=== PATIENT | male | born 1935 | race Caucasian/White ===

== ENCOUNTER → 2016-09-21 | Outpatient (CLI) | payer MEDICARE, OTHER ==
--- NOTE | 2016-09-22 10:56 | XR ---
Right shoulder HISTORY: Pain, trauma 3 views of the right shoulder Bone mineralization, joint spaces and alignment are maintained. Right lung apex as visualized is norm al. IMPRESSION: No fracture or dislocation is evident. Shoulder MRI may be of benefit.
== END | disposition home or self-care (01) ==
LOC: RADXRYALE 16:52
PROVIDERS: ATTEND Family Medicine
DX: M25.511 Pain in right shoulder (principal)

== ENCOUNTER → 2016-10-18 | Outpatient (CLI) | payer MEDICARE, OTHER ==
--- NOTE | 2016-10-18 14:02 | MR ---
EXAMINATION TYPE: MR shoulder RT wo con DATE OF EXAM: 10/18/2016 1:20 PM COMPARISON: Radiographs 09/21/2016 HISTORY: 80-year-old male with right shoulder pain TECHNIQUE: Multiplanar, multisequence imaging of the right shoulder is performed without contrast. FINDINGS: The intracapsular portion of the long head biceps tendon is diminutive and likely partially torn. The re is moderate tenosynovial fluid seen along the extracapsular portion and there is also slight media l subluxation of the tendon along the upper bicipital groove. There is complete retracted tear of the subscapularis tendon with stump retracted medially 2.6 cm. There is moderate degenerative joint space narrowing with marginal spurring and capsular hypertrophy at the acromioclavicular joint. Changes contact the underlying myotendinous junction of the supraspin atus. An underlying AC joint effusion is likely reactive or may be communicating with bursal fluid. There is a full-thickness tear of the supraspinatus tendon. Essentially entire supraspinatus tendon a ppears involved with stump retracted by 3.4 cm to the level of a prominent rotator cable. Intermediate signal within the infraspinatus tendon. Most of the infraspinatus tendon appears intact. Mild fatty streaks are seen within the subscapularis, supraspinatus, and infraspinatus muscle bellies without any significant fatty atrophy. Evaluation of the glenohumeral joint shows a blunted and degenerative appearance to the glenoid labru m but without discrete labral tear or paralabral cyst. There is a moderate glenohumeral joint effusion. Mild diffuse thinning of humeral head articular cart ilage. No Hill-Sachs deformity or os acromiale. No suspicious bone marrow replacement. IMPRESSION: 1. Full-thickness tear of essentially the entire supraspinatus tendon with stump retracted by 3.4 cm to the level of a prominent rotator cable. 2. Additional complete tear of the subscapularis tendon with stump retracted by 2.6 cm. 3. Minimal fatty streaks within the rotator cuff muscle bellies without any significant fatty atrophy . 4. Partial tear intracapsular long head biceps tendon. Moderate biceps tenosynovitis. 5. Moderate glenohumeral joint effusion with mild diffuse thinning of humeral head articular cartilag e. 6. 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 AC joint effusion may be communicating with underlying b ursal fluid which in turn communicates with the glenohumeral joint space. Hypertrophic changes mildly impinge onto the underlying cuff.
== END ==
LOC: RADMRIMAIN 12:40
PROVIDERS: ATTEND Family Medicine
DX: M75.121 Complete rotator cuff tear or rupture of right shoulder, not specified as traumatic (principal); S46.011A Strain of muscle(s) and tendon(s) of the rotator cuff of right shoulder, initial encounter; M62.511 Muscle wasting and atrophy, not elsewhere classified, right shoulder; S46.111A Strain of muscle, fascia and tendon of long head of biceps, right arm, initial encounter; M75.21 Bicipital tendinitis, right shoulder; M25.411 Effusion, right shoulder; M19.011 Primary osteoarthritis, right shoulder

== ENCOUNTER → 2017-06-13 | Outpatient (CLI) | payer MEDICARE, OTHER ==
[2017-06-13 12:19] LABS: Anion Gap 7 mmol/L; Blood Urea Nitrogen 19 mg/dL (9-20); Carbon Dioxide 28 mmol/L (22-30); Chloride 109 mmol/L (98-107); Magnesium 1.8 mg/dL (1.6-2.3); Non-African American GFR(MDRD) 50 (>60 ml/min/1.73 sqM); Potassium 4.6 mmol/L (3.5-5.1); Sodium 144 mmol/L (137-145)
== END | disposition home or self-care (01) ==
LOC: LABWHC1 11:21
PROVIDERS: ATTEND Internal Medicine Cardiovascular Disease
DX: I49.3 Ventricular premature depolarization (principal)
CPT/HCPCS: 36415; 80051; 82565; 83735; 84520

== ENCOUNTER → 2018-04-09 | Outpatient (CLI) | payer MEDICARE, OTHER ==
--- NOTE | 2018-04-09 17:44 | CT ---
EXAMINATION TYPE: CT sinus wo con DATE OF EXAM: 04/09/2018 COMPARISON: None HISTORY: Facial pressure and pain CT DLP: 591 mGycm. Automated Exposure Control for Dose Reduction was Utilized. TECHNIQUE: CT scan of the sinuses is performed without contrast, axial images are obtained, coronal r eformatted images are also reviewed. FINDINGS: Orbital margins are intact. There is no evidence of orbital mass. There is fairly normal ae ration of the paranasal sinuses. I see no bony destructive process. There is bilateral patency of the ostiomeatal complex. Maxilla is intact. Nasal bone is intact. Maxilla is intact. IMPRESSION: Negative CT scan of the paranasal sinuses.
== END | disposition home or self-care (01) ==
LOC: RADCTMAIN 16:11
PROVIDERS: ATTEND Family Medicine
DX: J32.4 Chronic pansinusitis (principal)
CPT/HCPCS: 70486

== ENCOUNTER 2018-05-30 11:37 | Day surgery (SDC) | payer MEDICARE, OTHER ==
[2018-05-24 12:37] VITALS: BMI 24.3
[~2018-05-30 11:37] MED LIST: DEXAMETHASONE SOD PHOSPHATE 4 MG/ML 1 ML VIAL IV ONE; FAMOTIDINE 20 MG/2 ML VIAL IV ONE; ONDANSETRON 4 MG/2 ML VIAL IVP ONE
[2018-05-30] MEDS: OXYMETAZOLINE 0.05% NASL SPRAY 1 SPRAY BOTTLE NASAL ONE ×5 (12:20→12:51)
[2018-05-30] MEDS ORDERED: LIDOCAINE 1% 20 ML VIAL (10MG/ML) FOR IV START INTRADERMA ONE (12:29)
[2018-05-30] MEDS ORDERED: LACTATED RINGERS 1,000 ML IV ONE (12:29)
[2018-05-30] MEDS ORDERED: LIDOCAINE 1%-EPI 1:100,000 30 ML VIAL SUBMUCOSAL ONE ×3 (14:36→15:00)
[2018-05-30] MEDS: ceFAZolin 1,000 MG in DEXTROSE/WATER 1 50ML.BAG IV ONE ×3 (14:37→14:43)
[2018-05-30] MEDS ORDERED: fentaNYL (PF) 50 MCG/ML 2 ML AMP ONE (14:38)
[2018-05-30] MEDS ORDERED: ePHEDrine SULFATE/0.9% NACL/PF 50 MG/5 ML SYRINGE IV ONE (14:38)
[2018-05-30] MEDS ORDERED: LIDOCAINE 1% INJ 10MG/ML (20 ML MDV) ONE (14:38)
[2018-05-30] MEDS ORDERED: DEXAMETHASONE SOD PHOS (MDV) 100 MG/10 ML VIAL ONE (14:38)
[2018-05-30] MEDS ORDERED: SUCCINYLCHOLINE CHLORIDE VIAL 200 MG/10 ML VIAL IV ONE (14:38)
[2018-05-30] MEDS ORDERED: MIDAZOLAM 2 MG/2 ML VIAL ONE (14:38)
[2018-05-30] MEDS ORDERED: PROPOFOL 10 MG/ML 20 ML VIAL IV ONE (14:38)
--- NOTE | 2018-05-30 15:43 | P.OP ---
Date of Procedure: 05/30/18 Preoperative Diagnosis: Deviated nasal septum Inferior turbinate hypertrophy Nasal polyps Postoperative Diagnosis: Same Procedure(s) Performed: Septoplasty Outfracture and submucous resection of the inferior turbinates Bilateral endoscopic sinus surgery with polypectomy Anesthesia: ANDRE Surgeon: Gume Brizuela Estimated Blood Loss (ml): 5 Pathology: other (Nasal septal bone and cartilage and sinus contents) Condition: stable Disposition: PACU Indications for Procedure: This is an 82-year-old white male whose had difficulties with chronic nasal airway obstruction and congestion bilaterally Operative Findings: Nasal septum deviated to the left anteriorly to the right posteriorly the inferior turbinates are hypertrophied bilaterally. There are polyps in the middle meatus bilaterally arising from the uncinate process bilaterally Description of Procedure: The patient was brought in the operative suite and placed in a supine position. Patient underwent induction of general anesthesia with oral endotracheal intubation without difficulty. The patient prepped and draped in usual aseptic fashion with the orbits in the operating field for monitoring to at the case. The computed tomography scan at the case also. 1% lidocaine with 1 100,000 epinephrine was infused submucosally both sides nasal septum. While this taking vasoconstrictive effect the inferior elevator partial submucous resection of the inferior turbinates was performed with Coblation wand on the coagulation setting to ablate a portion of the submucosal soft tissue. These were then outfractured with the [place] elevator. A left hemitransfixion incision was made with the mucoperichondrial and mucoperiosteal flap on the left elevated. Bony cartilaginous junction was disarticulated and the mucoperiosteal flap on the right was elevated. Bony nasal septal deformities were removed Suni forceps. An inferior cartilaginous strip was removed leaving a full 1.5 cm caudal strut. Checking intranasally this corrected the nasoseptal deformities and the hemitransfixion incision was closed with a running 4-0 chromic suture. Full 0 the endoscopic examination was performed bilaterally. Beginning on the left the middle turbinate was medialized. The polyps were then debrided with microdebrider off of the uncinate process. The maxillary ostium was patent. Attention was then turned to the right where the procedure was followed as it had the left with polypectomy with polyps removed with the microdebrider off of the uncinate process. Again the middle meatus was patent.xerogel was placed in the middle meatus bilaterally. Be airway splint coated bacitracin ointment were placed in nasal cavities and sutured trans-septally with a 4-0 Vicryl suture. The patient was suctioned in oral gastric fashion. Patient allowed to emerge from general anesthesia and tolerated well was extubated in the operative suite and transferred postop recovery area in satisfactory condition.
[2018-05-30 16:04] VITALS: RESP 16; TEMP 97.5
[2018-05-30 17:04] VITALS: BP 157/81; PULSE 54
== END 2018-05-30 17:16 | disposition home or self-care (01) ==
LOC: OR 11:37
PROVIDERS: ATTEND Otolaryngology
DX: J34.2 Deviated nasal septum (principal); J34.3 Hypertrophy of nasal turbinates; J33.9 Nasal polyp, unspecified; K21.9 Gastro-esophageal reflux disease without esophagitis; I10 Essential (primary) hypertension; H40.9 Unspecified glaucoma; Z79.899 Other long term (current) drug therapy; Z91.09 Other allergy status, other than to drugs and biological substances; Z82.49 Family history of ischemic heart disease and other diseases of the circulatory system
CPT/HCPCS: 88305; 88300; 30140; 30520; 31237; J2250; J0330; J1100 ×2; J2405; J2001; J3010; J0690; J2704

== ENCOUNTER 2018-12-05 09:53 | Day surgery (SDC) | payer MEDICARE, OTHER ==
[2018-12-03 11:27] VITALS: BMI 25.1
[~2018-12-05 09:53] MED LIST changes: -DEXAMETHASONE SOD PHOSPHATE 4 MG/ML 1 ML VIAL IV ONE; -FAMOTIDINE 20 MG/2 ML VIAL IV ONE; +LACTATED RINGERS 1,000 ML IV SCH; +LIDOCAINE 1% 20 ML VIAL (10MG/ML) FOR IV START INTRADERMA PRN; -ONDANSETRON 4 MG/2 ML VIAL IVP ONE
[2018-12-05 11:02] VITALS: RESP 16; TEMP 97.6
[2018-12-05] MEDS ORDERED: LIDOCAINE 1% INJ 10MG/ML (20 ML MDV) ONE (11:36)
[2018-12-05] MEDS ORDERED: GLYCOPYRROLATE 0.2 MG/ML 2 ML VIAL ONE (11:36)
[2018-12-05] MEDS ORDERED: PROPOFOL 10 MG/ML 20 ML VIAL IV ONE (11:36)
--- NOTE | 2018-12-05 11:49 | P.PCN ---
Date of Procedure: 12/05/18 Procedure(s) Performed: BRIEF HISTORY: Patient is a 83-year-old, pleasant, I male, scheduled for an upper endoscopy as a part of evaluation of GERD/dysphagia. Lately has been having worsening solid food dysphagia. He had upper endoscopy with dilation in July 2016. PROCEDURE PERFORMED: Esophagogastroduodenoscopy with dilation. PREOPERATIVE DIAGNOSIS: Progressive dysphagia to solids. IV sedation per anesthesia. PROCEDURE: After informed consent was obtained, the patient was brought into the endoscopy unit. IV sedation was administered by Anesthesia under continuous monitoring. Initially the Olympus GIF-140 video endoscope was inserted into the mouth. Esophagus intubated without any difficulty. It was gradually advanced into the stomach and duodenum and carefully examined. The bulb and the second part of the duodenum appeared normal. The scope at this time was withdrawn to the stomach, adequately insufflated with air, and upon careful examination, mucosa of the antrum, body, cardia and the fundus appeared normal. The scope was then withdrawn into the esophagus. The GE junction was located at 39 cm from the incisors. Small sliding Hiatal hernia noted. There was a distal esophageal stricture identified at the GE junction which was dilated using 12-15 mm TTS balloon as sequential fashion for total of 90 seconds. The rest of the esophagus appeared normal. There were no erosions or ulcerations seen and the patient tolerated the procedure well. IMPRESSION: 1. Distal esophageal stricture status post balloon dilation using 12-15 mm TTS balloon as described above. 2. Small hiatal hernia. RECOMMENDATIONS: The findings of this examination were discussed with the patient as well as his family. He'll remain on clear liquid diet today. He will continue with omeprazole 20 mg daily and follow antireflux measures..
[2018-12-05 11:56] VITALS: BP 99/58; PULSE 45
== END 2018-12-05 12:24 | disposition home or self-care (01) ==
LOC: ORWHC2ENDO 09:53
PROVIDERS: ATTEND Internal Medicine Gastroenterology
DX: K22.2 Esophageal obstruction (principal); K44.9 Diaphragmatic hernia without obstruction or gangrene; K21.9 Gastro-esophageal reflux disease without esophagitis; Z79.82 Long term (current) use of aspirin; Z79.899 Other long term (current) drug therapy; I10 Essential (primary) hypertension
CPT/HCPCS: 43249

== ENCOUNTER → 2019-01-16 | Outpatient (CLI) | payer MEDICARE, OTHER ==
--- NOTE | 2019-01-17 11:23 | XR ---
Right knee HISTORY: Pain, strain 3 views of the right knee Joint space loss is present medial compartment. Bone mineralization is reduced. Alignment is normal. No fracture or dislocation. Probable vascular calcifications are noted incidentally. No sizable joint effusion is evident. IMPRESSION: No acute abnormalities evident. Knee MRI may be of benefit. Suspect some mild underlying arthropathy.
== END | disposition home or self-care (01) ==
LOC: RADXRYALE 16:37
PROVIDERS: ATTEND Physician Assistant Medical
DX: M25.561 Pain in right knee (principal)

== ENCOUNTER → 2021-05-21 | Outpatient (CLI) | payer MEDICARE, OTHER ==
--- NOTE | 2021-05-21 17:05 | XR ---
EXAMINATION TYPE: XR chest 2V DATE OF EXAM: 05/21/2021 COMPARISON: NONE HISTORY: Shortness of breath TECHNIQUE: Frontal and lateral views of the chest are obtained. FINDINGS: Scattered senescent parenchymal changes noted. Hyperinflation compatible with COPD. No evidence for infiltrate. No evidence for atelectasis. Heart size is stable. Mediastinal structures are stable and grossly unremarkable. No evidence for hilar prominence. Degenerative changes dorsal spine. IMPRESSION: 1. No evidence for acute pulmonary disease.
== END | disposition home or self-care (01) ==
LOC: RADXRYALE 16:41
PROVIDERS: ATTEND Family Medicine
DX: R06.02 Shortness of breath (principal)
CPT/HCPCS: 71046

== ENCOUNTER → 2021-11-01 | Outpatient (CLI) | payer MEDICARE, OTHER ==
--- NOTE | 2021-11-01 12:36 | XR ---
KUB HISTORY: Hematuria Frontal KUB is submitted, no comparisons There are multiple calcifications overlying both kidneys. Calcifications at the upper pole on the rig ht are likely clustered, the largest measuring approximately 9 mm, there are likely at least 3 calcif ic images. Mid pole calcification on the right measures 7 mm, lower pole region shows approximately 6 mm calcification. Clustered calcifications the upper pole the left kidney are present, at least 3-4, largest measures approximately 4 mm, midpole calcification measures approximately 4 mm. There are pr obable vascular calcifications within the pelvis. Dense vascular calcifications are noted in the sple felix artery distribution and aorta and iliac vessels. There is a levoscoliosis centered at the mid lumbar spine. Degenerative disc changes are also noted. IMPRESSION: Bilateral nephrolithiasis. Degenerative disc disease, is likely associated facet arthropa thy
== END | disposition home or self-care (01) ==
LOC: RADXRYALE 11:22
PROVIDERS: ATTEND Family Medicine
DX: N20.0 Calculus of kidney (principal)
CPT/HCPCS: 74018

== ENCOUNTER → 2021-11-17 | Outpatient (CLI) | payer MEDICARE, OTHER ==
--- NOTE | 2021-11-17 16:50 | US ---
EXAMINATION TYPE: US renals and bladder DATE OF EXAM: 11/17/2021 COMPARISON: NONE CLINICAL HISTORY: R31.9 HEMATURIA. Hematuria. EXAM MEASUREMENTS: Right Kidney: 9.4 x 4.4 x 4.1 cm Left Kidney: 12.4 x 5.2 x 5.5 cm There is loss of normal cortical medullary differentiation within the right kidney. Right Kidney: Hyperechoic focus seen mid pole: 0.8 x 0.8 x 0.5 cm. Hyperechoic focus seen upper pole : 0.7 x 0.6 x 0.7 cm. Hypoechoic area seen upper pole: 1.3 x 1.4 x 1.3 cm., Possible cyst Left Kidney: Anechoic areas seen. Largest measures 3.3 x 2.8 x 3.2 cm. Multiple tiny hyperechoic foc i seen, largest measures 2.6 mm. Bladder: Appears anechoic. Inferior impression likely due to prostate hypertrophy Bilateral Jets seen: Yes IMPRESSION: Correlate for medical renal disease. Probable associated nephrolithiasis is nonobstructive in the rig ht kidney. Cortical cyst lower and mid pole left kidney. Left-sided nephrolithiasis also noted.
== END | disposition home or self-care (01) ==
LOC: RADUSWWP 15:38
PROVIDERS: ATTEND Family Medicine
DX: N20.0 Calculus of kidney (principal); N28.1 Cyst of kidney, acquired
CPT/HCPCS: 76770

== ENCOUNTER → 2021-12-09 | Outpatient (CLI) | payer MEDICARE, OTHER ==
--- NOTE | 2021-12-09 10:04 | XR ---
EXAMINATION TYPE: XR KUB DATE OF EXAM: 12/09/2021 COMPARISON: NONE HISTORY: Pain TECHNIQUE: One view abdominal series FINDINGS: The osseous structures are intact. The bowel gas pattern is nonspecific. Left kidney: Approximately 8 calcifications overlying the left kidney the largest measuring 3 mm. Right kidney: There are approximately 5 calcifications overlying the right kidney the largest measuri ng 9.2 mm. Hypertrophic and degenerative change of the spine. Remains increased calcification overlying the righ t sacrum some of which likely is vascular. However, overlying the right first sacral foramina uretera l stone cannot be excluded. Findings similar to the prior exam. Additional pelvic calcifications are stable except for a centrally placed calcification measuring 4.5 mm could potentially represent a corona dder calculus. Additional vascular calcifications are seen and there is arthropathy of the hip. IMPRESSION: 1. Stable appearing bilateral nephrolithiasis. 2. Suggestion of interval development of a central pelvic 4.5 mm calcification possibly within the bl adder. Measuring 4.5 mm IMPRESSION: 1. Nonspecific abdomen.
== END | disposition home or self-care (01) ==
LOC: RADXRMAIN 09:35
PROVIDERS: ATTEND Urology
DX: N20.0 Calculus of kidney (principal)
CPT/HCPCS: 74018

== ENCOUNTER → 2021-12-23 | Outpatient (CLI) | payer MEDICARE, OTHER ==
--- NOTE | 2021-12-24 08:04 | CT ---
EXAMINATION TYPE: CT abdomen pelvis wo con DATE OF EXAM: 12/24/2021 HISTORY: Kidney, Ureter stone CT DLP: 461.7 mGycm. Automated Exposure Control for Dose Reduction was Utilized. TECHNIQUE: CT scan of the abdomen and pelvis is performed without oral or IV contrast. COMPARISON: Abdominal x-ray 2 weeks ago. Renal ultrasound November 17, 2021 FINDINGS: Within the limitations of a non-contrast study, the following observations are made. LUNG BASES: Cardiomegaly is present. Coronary artery calcification the RCA distribution. Trace perica rdial effusion. LIVER/GB: No significant abnormality is appreciated. PANCREAS: No significant abnormality is seen. SPLEEN: Small splenule anterior inferior aspect axial image 28. ADRENALS: No significant abnormality is seen. KIDNEYS: Cortical thinning in the right kidney. Bilateral nephrolithiasis with 3 right-sided renal ca lculi including a 1.5 cm staghorn type calculus upper pole right kidney coronal image 62. Approximate 3 left renal calculi including a dominant 8 mm calculus upper pole left kidney axial image 43. There is 2.6 cm simple appearing thin-walled cyst in the left kidney axial image 58 lower pole level. No h ydronephrosis or obstructing ureteric calculi on the left kidney. There is a 7 mm calculus in the mid to distal right ureter axial image 114 causing mild right-sided hydronephrosis and proximal hydroure ter. Curvilinear calcifications suspect small 3-4 intraluminal calculi in the left aspect of the blad chaim. Scattered bilateral pelvic phleboliths. BOWEL: Few diverticula in the left and sigmoid colon. No CT evidence for acute diverticulitis. Normal -appearing appendix from cecum. No suspicious small or large bowel dilatation. GENITAL ORGANS: Mildly enlarged prostate bulging on bladder base consistent with BPH LYMPH NODES: No greater than 1cm abdominal or pelvic lymph nodes are appreciated. OSSEOUS STRUCTURES: Grade 1 retrolisthesis of L1 on L2, L2 on L3, and L3 and L4. Moderate to severe m ultilevel disc space narrowing greatest L2-L3 through the L5-S1. Levels. Moderate narrowing of both hip joints. Facet arthropathy lower lumbar levels. OTHER: Moderate calcified plaque of the aorta extends into branch vessels. IMPRESSION: Bilateral nephrolithiasis with 7 mm calculus in the mid to distal right ureter causing mi ld right-sided hydronephrosis
== END | disposition home or self-care (01) ==
LOC: RADCTMAIN 14:17
PROVIDERS: ATTEND Urology
DX: N13.2 Hydronephrosis with renal and ureteral calculous obstruction (principal)
CPT/HCPCS: 74176

== ENCOUNTER → 2022-01-12 | Outpatient (CLI) | payer MEDICARE, OTHER ==
[2022-01-12 18:06] LABS: African American GFR (CKD) 49.8 (60.0-200.0); Albumin/Globulin Ratio 1.82 (1.60-3.17); Anion Gap 9.6 mmol/L (10.00-18.00); BUN/Creat Ratio 16.07 Ratio (12.00-20.00); Blood Urea Nitrogen 23.3 mg/dL (9.0-27.0); Calcium 9.7 mg/dL (8.7-10.3); Carbon Dioxide 19.5 mmol/L (20.0-27.5); Globulin 2.2 g/dL (1.6-3.3); Potassium 4.4 mmol/L (3.5-5.5); Total Bilirubin 0.4 mg/dL (0.30-1.20); Total Protein 6.3 g/dL (6.2-8.2)
[2022-01-12 18:17] LABS: Appearance,Urine Clear (Clear); Bilirubin,Urine Negative (Negative); Blood,Urine Trace (Negative); Color,Urine Yellow (Yellow); Ketones,Urine Negative (Negative); Nitrite,Urine Negative (Negative); PH, Urine 6.5 (5.0-8.0); Specific Gravity,Urine 1.018 (1.001-1.030)
[2022-01-12 18:27] LABS: Bacteria,Urine None Seen /HPF (None Seen)
[2022-01-12 18:40] LABS: Basophils # (A) 0.03 X 10*3/uL (0.00-0.10); Basophils % (A) 0.8 %; Crenated RBC 2+; Eosinophils # (A) 0.22 X 10*3/uL (0.04-0.35); Eosinophils % (A) 5.6 %; HCT 41.1 % (39.6-50.0); HGB 12.6 g/dL (13.0-17.0); Immature Grans, Automated 0.5 %; Lymphocytes # (A) 0.64 X 10*3/uL (0.90-5.00); Lymphocytes % (A) 16.4 %; MCH 28.7 pg (27.0-32.0); MCHC 30.7 g/dL (32.0-37.0); MCV 93.6 fL (80.0-97.0); Mean Platelet Volume 13.4 fL (9.5-12.2); Monocytes # (A) 0.43 X 10*3/uL (0.20-1.00); NRBC Per 100 WBC 0 /100 WBCS (0.0-0.0); Neutrophils # (A) 2.56 X 10*3/uL (1.80-7.70); Neutrophils % (A) 65.7 %; Platelet Count 97 X 10*3/uL (140-440); RBC 4.39 X 10*6/uL (4.40-5.60)
== END | disposition home or self-care (01) ==
LOC: LABPAT 10:49
PROVIDERS: ATTEND Urology
DX: Z01.812 Encounter for preprocedural laboratory examination (principal); N20.1 Calculus of ureter; N21.9 Calculus of lower urinary tract, unspecified
CPT/HCPCS: 80053; 81001; 85025; 87086

== ENCOUNTER 2022-01-19 08:52 | Day surgery (SDC) | payer MEDICARE, OTHER ==
[2022-01-17 15:33] VITALS: BMI 25.1
--- NOTE | 2022-01-18 11:09 | P.GSHP ---
History of Present Illness H&P Date: 01/18/22 86 yo male who cam for evalustion of gross hematuria. He was found to have 3-4 small bladder stones and a 7 mm distal right ureteral stone. He comes for a cystolithotripsy and a right ureteroscopy with laser lithotripsy. - Constitutional Constitutional: Denies chills, Denies fever - EENT Eyes: denies blurred vision, denies pain Ears, nose, mouth and throat: Denies headache, Denies sore throat - Cardiovascular Cardiovascular: Denies chest pain, Denies shortness of breath - Respiratory Respiratory: Denies cough, Denies 7 - Gastrointestinal Gastrointestinal: Denies abdominal pain, Denies diarrhea, Denies nausea, Denies vomiting - Genitourinary (Female) Genitourinary: Denies dysuria, Denies hematuria - Genitourinary (Male) Genitourinary: Denies dysuria, Denies hematuria - Musculoskeletal Musculoskeletal: Denies myalgias - Integumentary Integumentary: Denies pruritus, Denies rash - Neurological Neurological: Denies numbness, Denies weakness - Psychiatric Psychiatric: Denies anxiety, Denies depression - Endocrine Endocrine: Denies fatigue, Denies weight change Past Medical History Past Medical History: Atrial Fibrillation, Eye Disorder, GERD/Reflux, Hearing Disorder / Deafness, Hypertension, Prostate Disorder Additional Past Medical History / Comment(s): Hx low PLT count. Hx kidney stones, enlarged prostate; Right eye glaucoma, retinal issues. Bilat hearing aids. Seasonal allergies. Hx bracycardia. Mild dysphagia, tx w/ dilation. Covid 02/2021; onset A-Fib after that. Current UTI, on po AB Rx. History of Any Multi-Drug Resistant Organisms: None Reported Past Surgical History: Hernia Repair, Joint Replacement Additional Past Surgical History / Comment(s): 3 right eye surgeries, total right shoulder, EGD with dilation x2, hernia repair X2, lithotripsy. Colonscopy. Sinus surg. Total Rt knee; Rt Total knee revision. Past Anesthesia/Blood Transfusion Reactions: No Reported Reaction Additional Past Anesthesia/Blood Transfusion Reaction / Comment(s): NO BLOOD TRANSFUSION Smoking Status: Never smoker - Past Family History Mother Family Medical History: No Reported History Medications and Allergies Home Medications Medication Instructions Recorded Confirmed Type Brinzolamide/Brimonidine Tart 1 drop RIGHT EYE BID 05/24/18 01/17/22 History [Simbrinza 1%-0.2% Eye Drops] Latanoprost/Pf [Latanoprost 0.005% 1 drop BOTH EYES HS 05/24/18 01/17/22 History Eye Drop] Omeprazole 40 mg PO QAM 05/24/18 01/17/22 History amLODIPine [Norvasc] 10 mg PO DAILY@1200 05/24/18 01/17/22 History atenoloL [Tenormin] 50 mg PO QAM 05/24/18 01/17/22 History hydrALAZINE HCL [Apresoline] 50 mg PO TID 05/24/18 01/17/22 History lisinopriL 40 mg PO 1800 05/24/18 01/17/22 History prednisoLONE ACETATE 1% OPHTH 1 drops RIGHT EYE DAILY 12/03/18 01/17/22 History [Pred Forte 1%] Apixaban [Eliquis] 2.5 mg PO BID 01/17/22 01/17/22 History Ciprofloxacin HCl [Cipro] 500 mg PO BID 01/17/22 01/17/22 History Tamsulosin HCl [Flomax] 0.8 mg PO PC-SUPPER 01/17/22 01/17/22 History acetaZOLAMIDE [Diamox Sequels] 500 mg PO DAILY@1200 01/17/22 01/17/22 History Allergies Allergy/AdvReac Type Severity Reaction Status Date / Time No Known Allergies Allergy Verified 01/17/22 14:59 Surgical - Exam - General well developed, well nourished, no distress - Eyes normal ocular movement, no icteric - ENT no hearing loss, no congestion - Neck no masses, trachea midline - Respiratory normal respiratory effort, clear to auscultation - Abdomen Abdomen: soft, non tender, no guarding, no rigid, no rebound - Integumentary no rash, no abnormal pigmentation - Neurologic no disoriented, no combative - Psychiatric oriented to time, oriented to person, oriented to place, speech is normal, memory intact Results - Imaging CT scan - abdomen: report reviewed, image reviewed CT scan - pelvis: report reviewed, image reviewed Assessment and Plan Assessment: Impression: bladder stones, right ureteral stone. Plan: cystolithotripsy, right ureteroscopy with laser lithotripsy
[~2022-01-19 08:52] MED LIST changes: +HYDROmorphone 0.5 MG/0.5 ML SYRINGE IVP PRN; +LIDOCAINE 1% (10MG/ML) FOR IV START INTRADERMA PRN; -LIDOCAINE 1% 20 ML VIAL (10MG/ML) FOR IV START INTRADERMA PRN; +ONDANSETRON 4 MG/2 ML VIAL IVP ONE
--- NOTE | 2022-01-19 09:10 | XR ---
EXAMINATION TYPE: XR KUB DATE OF EXAM: 01/19/2022 COMPARISON: 12/09/2021 HISTORY: Pain TECHNIQUE: One view abdominal series FINDINGS: The osseous structures are intact. The bowel gas pattern is nonspecific. Metallic density overlying the right femoral head may be superficial age. There is a somewhat irregular calcification in the mid right hemipelvis measuring 5 mm. Additional calcifications lower in the pelvis likely are vascular. Superior linear type calcification also likely. Vascular calcifications are seen adjacent to the femur. There is severe degenerative disc disease wit h scoliosis. Left kidney: Approximately 4 calcifications overlying the left kidney the largest measuring 7 mm. Right kidney: There are approximately 5 calcifications overlying the right kidney the largest measuri ng 1.2 cm. IMPRESSION: 1. Bilateral nephrolithiasis. One of the right renal calculi measuring approximately 5 mm migrated fr om the mid ureter to the level of the distal ureter within the right hemipelvis a few centimeters pro ximal to the UVJ.
[2022-01-19] MEDS ORDERED: DEXAMETHASONE SOD PHOSPHATE 4 MG/ML 1 ML VIAL IV ONE ×2 (10:09)
[2022-01-19] MEDS ORDERED: PROPOFOL 10 MG/ML 20 ML VIAL IV ONE (10:46)
[2022-01-19] MEDS ORDERED: METHYLENE BLUE 10 MG/ML (10 ML VIAL) ONE (10:46)
[2022-01-19] MEDS ORDERED: fentaNYL (PF) 50 MCG/ML 2 ML AMP ONE (10:46)
[2022-01-19] MEDS ORDERED: LIDOCAINE 2% INJ 20 MG/ML (2 ML VIAL) ONE (10:46)
[2022-01-19] MEDS ORDERED: SUCCINYLCHOLINE CHLORIDE 100 MG/5 ML SYR IV ONE (10:46)
[2022-01-19] MEDS ORDERED: PHENYLEPHRINE-0.9% NACL SYG 1,000 MCG/10 ML SYRINGE ONE (10:46)
[2022-01-19] MEDS ORDERED: LACTATED RINGERS 1,000 ML IV ONE (11:40)
--- NOTE | 2022-01-19 11:49 | P.OP ---
Date of Procedure: 01/19/22 Preoperative Diagnosis: Right ureteral calculus, bladder stones Postoperative Diagnosis: Same, prostate bleeding Procedure(s) Performed: Cystoscopy, evacuation of bladder stones, right ureteroscopy with laser lithotripsy, fulguration of prostate bleeding Anesthesia: ANDRE Surgeon: Bernardo Arias Estimated Blood Loss (ml): 25 Pathology: other (Bladder and ureteral stones) Condition: stable Disposition: PACU Indications for Procedure: The patient is 86 and identified a 7 mm distal ureteral stone and several small bladder stones. He comes for cystoscopy lithotripsy and right ureteroscopy Description of Procedure: Patient brought to the operating suite. Given general anesthesia. Placed lithotomy position with sterile prep and drape. Cystoscopy 21-Vietnamese sheath identifies a normal anterior urethra. Prostate shows a trilobar prostate with a large intravesical middle lobe. Upon entering the bladder there is a fair amount of stone that is drained out of the bladder is all small stony debris. The prostate middle lobe bleeds easily and makes vision difficult. The rest the bladder norman and remarkable except for bladder trabeculation. With some difficulty I eventually identify the right ureteral orifice. An 035 wires passed up the ureter into the kidney to over the wire dilate the ureter with a 6-Vietnamese open-ended catheter. Alongside the wire pass a 7-Vietnamese mini ureteroscope to the stone. 375 laser probe the stone was broken into tiny fragments and flushed out of the bladder and sent separately. At the end of the procedure with the Bugbee electrode I cauterize the bladder neck thoroughly and the middle lobe as it was bleeding due to the scope manipulation. Then of the procedure there is no active bleeding. The patient is awakened returned recovery in good condition. He'll be discharged home upon recovery and followed the office in one week..
--- NOTE | 2022-01-19 11:55 | FL ---
EXAMINATION TYPE: FL guidance operating room DATE OF EXAM: 01/19/2022 HISTORY: Fluoroscopy time 3 seconds of fluoroscopy provided. IMPRESSION: 1. Fluoroscopy time.
[2022-01-19 11:58] VITALS: TEMP 96.8
[2022-01-19 12:41] VITALS: RESP 16
[2022-01-19 13:18] VITALS: BP 115/66; PULSE 75
== END 2022-01-19 13:45 | disposition home or self-care (01) ==
LOC: OR 08:52
PROVIDERS: ATTEND Urology
DX: N20.1 Calculus of ureter (principal); N21.0 Calculus in bladder; N40.0 Benign prostatic hyperplasia without lower urinary tract symptoms; N32.89 Other specified disorders of bladder; I48.91 Unspecified atrial fibrillation; K21.9 Gastro-esophageal reflux disease without esophagitis; I10 Essential (primary) hypertension; H91.90 Unspecified hearing loss, unspecified ear; Z87.442 Personal history of urinary calculi; Z87.440 Personal history of urinary (tract) infections; Z86.16 Personal history of COVID-19; Z79.899 Other long term (current) drug therapy; H40.9 Unspecified glaucoma; Z79.01 Long term (current) use of anticoagulants
CPT/HCPCS: 82365; 74018; 52353; 52317; C1769; C1758; J1100; J0690; J2405; Q9968; J3010; J2370; J0330; J2704; J2001

== ENCOUNTER 2022-01-24 18:18 | Emergency (ER) | payer MEDICARE, OTHER ==
--- NOTE | 2022-01-24 22:45 | ED ---
Male Urogenital HPI - General Chief complaint: Urogenital Stated complaint: Cath not working/Procedure 01/24 Time Seen by Provider: 01/24/22 21:51 Source: patient Mode of arrival: ambulatory Limitations: no limitations - History of Present Illness Initial comments: Patient is a 86-year-old male presenting with chief complaint of urinary catheter issues. Patient had a procedure performed on 01/19 to remove a kidney stone, at bedside states that they had to go through the prostate and this caused a lot of bleeding post surgery. She states that he has had an episode this week where his urinary catheter stops draining due to what she believes is a blood clot, as there was trace amounts of blood leaking down the tube. This episode cleared up on its own and the catheter started draining again. states that at about 4 PM today, the catheter stopped draining. They Were Unable to Get into Dr. Arias's Office. Patient admits to pressure over the bladder. Denies nausea, vomiting, chest pain, shortness of breath, fever, chills, diaphoresis, diarrhea, pallor. - Related Data Home Medications Medication Instructions Recorded Confirmed Brinzolamide/Brimonidine Tart 1 drop RIGHT EYE BID 05/24/18 01/19/22 [Simbrinza 1%-0.2% Eye Drops] Latanoprost/Pf [Latanoprost 0.005% 1 drop BOTH EYES HS 05/24/18 01/19/22 Eye Drop] Omeprazole 40 mg PO QAM 05/24/18 01/19/22 amLODIPine [Norvasc] 10 mg PO DAILY@1200 05/24/18 01/19/22 atenoloL [Tenormin] 50 mg PO QAM 05/24/18 01/19/22 hydrALAZINE HCL [Apresoline] 50 mg PO TID 05/24/18 01/19/22 lisinopriL 40 mg PO 1800 05/24/18 01/19/22 prednisoLONE ACETATE 1% OPHTH 1 drops RIGHT EYE DAILY 12/03/18 01/19/22 [Pred Forte 1%] Apixaban [Eliquis] 2.5 mg PO BID 01/17/22 01/17/22 Ciprofloxacin HCl [Cipro] 500 mg PO BID 01/17/22 01/19/22 Tamsulosin HCl [Flomax] 0.8 mg PO PC-SUPPER 01/17/22 01/19/22 acetaZOLAMIDE [Diamox Sequels] 500 mg PO DAILY@1200 01/17/22 01/19/22 Allergies Allergy/AdvReac Type Severity Reaction Status Date / Time No Known Allergies Allergy Verified 01/24/22 20:36 Review of Systems ROS Statement: Those systems with pertinent positive or pertinent negative responses have been documented in the HPI. ROS Other: All systems not noted in ROS Statement are negative. Past Medical History Past Medical History: Eye Disorder, GERD/Reflux, Hearing Disorder / Deafness, Hypertension, Prostate Disorder Additional Past Medical History / Comment(s): Hx kidney stones, enlarged prostate; Right eye glaucoma, retinal issues/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 bi lateral use of hearing aids. SEASONAL ALLERGIES. BRADYCARDIA. SOME MILD DYSPHAGIA. History of Any Multi-Drug Resistant Organisms: None Reported Past Surgical History: Hernia Repair, Joint Replacement Additional Past Surgical History / Comment(s): 3 right eye surgeries, total right shoulder, EGD with dilation, hernia repair X2, lithotripsy. COLONOSCOPY. SINUS SURG. Past Anesthesia/Blood Transfusion Reactions: No Reported Reaction Additional Past Anesthesia/Blood Transfusion Reaction / Comment(s): NO BLOOD TRANSFUSION Past Psychological History: No Psychological Hx Reported Smoking Status: Never smoker Past Alcohol Use History: Rare - Past Family History Mother Family Medical History: No Reported History General Exam Limitations: no limitations General appearance: alert, in no apparent distress Head exam: Present: atraumatic, normocephalic, normal inspection Eye exam: Present: normal appearance, EOMI. Absent: scleral icterus Neck exam: Present: normal inspection Respiratory exam: Present: normal lung sounds bilaterally. Absent: respiratory distress, wheezes, rales, rhonchi, stridor Cardiovascular Exam: Present: regular rate, normal rhythm, normal heart sounds. Absent: systolic murmur, diastolic murmur, rubs, gallop, clicks GI/Abdominal exam: Present: soft, tenderness (Over the bladder), normal bowel so unds. Absent: distended, guarding, rebound, rigid Neurological exam: Present: alert, oriented X3, CN II-XII intact Psychiatric exam: Present: normal affect, normal mood Skin exam: Present: warm, dry, intact, normal color. Absent: rash Course Vital Signs 01/24/22 01/25/22 20:33 00:16 Temperature 97.9 F 97.8 F Pulse Rate 105 H 75 Respiratory 20 18 Rate Blood Pressure 115/74 117/71 O2 Sat by Pulse 97 100 Oximetry Medical Decision Making - Medical Decision Making Patient is an 86-year-old male presenting with chief complaint of urinary catheter issues. Patient had a procedure on 01/[address] Arias, and has had the catheter since then. He has had recurrent issues with bleeding and clots blocking the catheter. His at bedside states that they have normally resolved on their own, however his catheter has not been working since 4 PM this afternoon. He is having increasing pressure over the bladder. Hemoglobin is 12.4. BUN and creatinine are elevated, this is consistent with his baseline. Urine suggests possible UTI, patient states he is currently on an antibiotic prescribed by Dr. Arias. Catheter was flushed, and urine began draining. On reassessment patient states his pain is improved drastically. He appears stable for discharge with outpatient follow-up at this time. Patient states that he has a follow-up appointment with Dr. Arias on Monday. Report back to ER with any new or worsening symptoms. I discussed return parameters answered all questions. Patient conveyed verbal understanding and agreed to the plan. My attending is Dr. Clayton. - Lab Data Result diagrams: 01/24/22 22:41 01/24/22 22:41 Lab Results 01/24/22 01/24/22 01/24/22 Range/Units 22:41 22:41 22:41 WBC 5.6 (3.8-10.6) k/uL RBC 4.00 L (4.30-5.90) m/uL Hgb 12.4 L (13.0-17.5) gm/dL Hct 38.7 L (39.0-53.0) % MCV 96.7 (80.0-100.0) fL MCH 31.0 (25.0-35.0) pg MCHC 32.0 (31.0-37.0) g/dL RDW 15.7 H (11.5-15.5) % Plt Count 128 L (150-450) k/uL MPV 9.7 Neutrophils % 70 % Lymphocytes % 14 % Monocytes % 7 % Eosinophils % 7 % Basophils % 0 % Neutrophils # 3.9 (1.3-7.7) k/uL Lymphocytes # 0.8 L (1.0-4.8) k/uL Monocytes # 0.4 (0-1.0) k/uL Eosinophils # 0.4 (0-0.7) k/uL Basophils # 0.0 (0-0.2) k/uL Hypochromasia Moderate Sodium 139 (137-145) mmol/L Potassium 3.9 (3.5-5.1) mmol/L Chloride 114 H (98-107) mmol/L Carbon Dioxide 20 L (22-30) mmol/L Anion Gap 5 mmol/L BUN 23 H (9-20) mg/dL Creatinine 1.47 H (0.66-1.25) mg/dL Est GFR (CKD-EPI)AfAm 49 (>60 ml/min/1.73 sqM) Est GFR (CKD-EPI)NonAf 42 (>60 ml/min/1.73 sqM) Glucose 107 H (74-99) mg/dL Plasma Lactic Acid James (0.7-2.0) mmol/L Calcium 9.2 (8.4-10.2) mg/dL Total Bilirubin 0.5 (0.2-1.3) mg/dL AST 22 (17-59) U/L ALT 17 (4-49) U/L Alkaline Phosphatase 63 (38-126) U/L Total Protein 6.0 L (6.3-8.2) g/dL Albumin 3.5 (3.5-5.0) g/dL Urine Color Red Urine Appearance Cloudy (Clear) Urine pH 7.0 (5.0-8.0) Ur Specific [place] 1.017 (1.001-1.035) Urine Protein 1+ H (Negative) Urine Glucose (UA) Negative (Negative) Urine Ketones Negative (Negative) Urine Blood Large H (Negative) Urine Nitrite Negative (Negative) Urine Bilirubin Negative (Negative) Urine Urobilinogen <2.0 (<2.0) mg/dL Ur Leukocyte Esterase Small H (Negative) Urine RBC >182 H (0-5) /hpf Urine WBC 9 H (0-5) /hpf Urine Bacteria Rare H (None) /hpf 01/24/22 Range/Units 22:41 WBC (3.8-10.6) k/uL RBC (4.30-5.90) m/uL Hgb (13.0-17.5) gm/dL Hct (39.0-53.0) % MCV (80.0-100.0) fL MCH (25.0-35.0) pg MCHC (31.0-37.0) g/dL RDW (11.5-15.5) % Plt Count (150-450) k/uL MPV Neutrophils % % Lymphocytes % % Monocytes % % Eosinophils % % Basophils % % Neutrophils # (1.3-7.7) k/uL Lymphocytes # (1.0-4.8) k/uL Monocytes # (0-1.0) k/uL Eosinophils # (0-0.7) k/uL Basophils # (0-0.2) k/uL Hypochromasia Sodium (137-145) mmol/L Potassium (3.5-5.1) mmol/L Chloride (98-107) mmol/L Carbon Dioxide (22-30) mmol/L Anion Gap mmol/L BUN (9-20) mg/dL Creatinine (0.66-1.25) mg/dL Est GFR (CKD-EPI)AfAm (>60 ml/min/1.73 sqM) Est GFR (CKD-EPI)NonAf (>60 ml/min/1.73 sqM) Glucose (74-99) mg/dL Plasma Lactic Acid James 0.7 (0.7-2.0) mmol/L Calcium (8.4-10.2) mg/dL Total Bilirubin (0.2-1.3) mg/dL AST (17-59) U/L ALT (4-49) U/L Alkaline Phosphatase (38-126) U/L Total Protein (6.3-8.2) g/dL Albumin (3.5-5.0) g/dL Urine Color Urine Appearance (Clear) Urine pH (5.0-8.0) Ur Specific [place] (1.001-1.035) Urine Protein (Negative) Urine Glucose (UA) (Negative) Urine Ketones (Negative) Urine Blood (Negative) Urine Nitrite (Negative) Urine Bilirubin (Negative) Urine Urobilinogen (<2.0) mg/dL Ur Leukocyte Esterase (Negative) Urine RBC (0-5) /hpf Urine WBC (0-5) /hpf Urine Bacteria (None) /hpf Disposition Clinical Impression: Urinary catheter complication Disposition: HOME SELF-CARE Condition: Good Instructions (If sedation given, give patient instructions): Cline Catheter Placement and Care (ED), Hematuria (ED) Additional Instructions: Follow-up with PCP and neurology in 1-2 days. Report back to ER with any new or worsening symptoms. Continue taking antibiotic as prescribed. Is patient prescribed a controlled substance at d/c from ED?: No Referrals: Michael Us DO [Primary Care Provider] - 1-2 days Bernardo Arias MD [STAFF PHYSICIAN] - 1-2 days Time of Disposition: 23:57
[2022-01-24 23:12] LABS: Albumin 3.5 g/dL (3.5-5.0); Calcium 9.2 mg/dL (8.4-10.2); Potassium 3.9 mmol/L (3.5-5.1); Total Bilirubin 0.5 mg/dL (0.2-1.3)
[2022-01-24 23:24] LABS: Appearance,Urine Cloudy (Clear); Bacteria,Urine Rare /hpf; Bilirubin,Urine Negative (Negative); Blood,Urine Large (Negative); Color,Urine Red; Glucose,Urine (UA) Negative (Negative); Ketones,Urine Negative (Negative); Leukocyte Esterase,Urine Small (Negative); Nitrite,Urine Negative (Negative); Protein,Urine 1+ (Negative); RBC,Urine >182 /hpf (0-5); Specific Gravity,Urine 1.017 (1.001-1.035); Urobilinogen,Urine <2.0 mg/dL (<2.0); WBC,Urine 9 /hpf (0-5)
[2022-01-24 23:32] LABS: Basophils % (A) 0 %; Eosinophils # (A) 0.4 k/uL (0-0.7); Eosinophils % (A) 7 %; HCT 38.7 % (39.0-53.0); HGB 12.4 gm/dL (13.0-17.5); Hypochromasia Moderate; Lymphocytes # (A) 0.8 k/uL (1.0-4.8); Lymphocytes % (A) 14 %; MCV 96.7 fL (80.0-100.0); Mean Platelet Volume 9.7; Monocytes # (A) 0.4 k/uL (0-1.0); Monocytes % (A) 7 %; Neutrophils # (A) 3.9 k/uL (1.3-7.7); Neutrophils % (A) 70 %; Platelet Count 128 k/uL (150-450); RDW 15.7 % (11.5-15.5); WBC 5.6 k/uL (3.8-10.6)
[2022-01-25 00:18] VITALS: BP 117/71; PULSE 75; RESP 18; TEMP 97.8
== END 2022-01-25 00:16 | disposition home or self-care (01) ==
LOC: EC 18:18
DX: T83.9XXA Unspecified complication of genitourinary prosthetic device, implant and graft, initial encounter (principal); I10 Essential (primary) hypertension
CPT/HCPCS: 36415; 51798; 80053; 81001; 83605; 85025

== ENCOUNTER → 2022-10-25 | Outpatient (CLI) | payer MEDICARE, BC ==
--- NOTE | 2022-10-25 13:10 | MR ---
EXAMINATION TYPE: MR wrist LT wo con DATE OF EXAM: 10/25/2022 COMPARISON: Left wrist x-ray October 03, 2022 HISTORY: Left wrist and hand pain/swelling. No trauma. Standard multiplanar, multisequence MRI departmental protocol Multiplanar, multisequence images of the left wrist were acquired without contrast. FINDINGS: Correlating with x-ray there is well-defined scalloping along the radial aspect of the dist al radius. There is proximal positioning of the proximal pole of the radius relative to the proximal carpal row. There are scattered lesions of T1 hypointensity and T2 hyperintensity throughout the prox imal and distal carpal rows suspect subchondral cystic change. There is figfmzpr-se-fgywew narrowing at the base of the first metacarpal. No ulnar variance. There is increased signal with some bowing of the dorsal fibers of the scapholunate tendon axial imag e 47 series 801. More volar fibers also show increased signal and disruption series 601. There is suleiman rene tilting of the lunate with proximal translation of the proximal pole of the capitate seen best on sagittal images. Scaphoid lunate angle greater than 60 degrees and sagittal images. Lunotriquetral l igament less well seen but presumed torn as appears discontiguous on T2 coronal weighted images and a ttempted axial images in plane. No abnormal widening is seen. Intermediate signal in the triangle fibrocartilage complex is present. No definitive focal tear with fluid disruption. Median nerve appears within normal limits an carpal tunnel. Ulnar nerve appears unremarkable. IMPRESSION: There is scapholunate tear without abnormal widening but proximal translation. There is D CHRIS felt present and proximal hamate transition. There is presumed lunotriquetral tendon tear though less well visualized. There are at least moderate degenerative changes throughout the carpal bones wi th greatest findings seen at the base of the first metacarpal. Degenerative changes to the triangular fibrocartilage complex are noted.
== END | disposition home or self-care (01) ==
LOC: RADMRIMAIN 07:33
PROVIDERS: ATTEND Family Medicine
DX: M19.042 Primary osteoarthritis, left hand (principal)

== ENCOUNTER → 2023-03-14 | Outpatient (CLI) | payer MEDICARE, BC ==
--- NOTE | 2023-03-14 12:07 | XR ---
EXAMINATION TYPE: XR Hip Complete LT DATE OF EXAM: 03/14/2023 COMPARISON: NONE HISTORY: Pain TECHNIQUE: 2 views submitted FINDINGS: There is no evidence of erosive change or acute fracture. Diffuse osteopenia. Moderate concentric jessie rowing of the joint space. Vascular calcifications. Assessment of the pubic rami limited due to techn ique. Hypertrophic change of the acetabulum. Slight nodular morphology involving the upper margin of the femoral neck can be associated with femoral acetabular impingement. IMPRESSION: 1. No evidence of acute fracture or dislocation. 2. 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
--- NOTE | 2023-03-14 12:14 | XR ---
EXAMINATION TYPE: XR chest 2V DATE OF EXAM: 03/14/2023 COMPARISON: 05/21/2021 TECHNIQUE: PA and lateral views submitted. HISTORY: Pain FINDINGS: The lungs are clear and there is no pneumothorax, pleural effusion, or focal pneumonia. Heart size is enlarged but no overt failure. Osseous structures demonstrate hypertrophic and degenerative change s of the spine. Hyperinflation correlate for COPD. Dictation of the aorta with atherosclerotic change s. Postsurgical changes right shoulder. Osteopenia noted. IMPRESSION: 1. No acute process.
--- NOTE | 2023-03-14 12:19 | XR ---
EXAMINATION TYPE: XR ribs RT DATE OF EXAM: 03/14/2023 COMPARISON: NONE HISTORY: Pain TECHNIQUE: 4 views submitted FINDINGS: Postoperative change overlying the right shoulder. There are deformities involving the ante rolateral eighth and ninth ribs. Visualized lung field is clear with no sizable pneumothorax. Calcifications in the right upper quadrant could be related to renal stones or gallstones. Additional vascular calcifications are seen and there is hypertrophic and degenerative change of the spine. IMPRESSION: 1. Findings are compatible with acute mildly displaced fractures involving the anterolateral right ei ghth and ninth rib. 2. Correlate for renal stones or less likely gallstones. A [place] level critical message alert has been initiated for Michael Us DO via the [employer] Critical Results System on 03/14/2023 12:17 PM. This message alert has been sent to Michael howard DO via the preferences provided by the clinician for the receipt of Radiology Critical Findings . Message ID [id number].
== END | disposition home or self-care (01) ==
LOC: RADXRYALE 10:08
PROVIDERS: ATTEND Family Medicine
DX: M16.12 Unilateral primary osteoarthritis, left hip (principal); R07.1 Chest pain on breathing; M85.88 Other specified disorders of bone density and structure, other site
CPT/HCPCS: 71046; 73502

== ENCOUNTER → 2023-04-18 | Outpatient (CLI) | payer MEDICARE, BC ==
--- NOTE | 2023-04-19 09:27 | CA ---
Transthoracic Echo Report Name: Sj Aponte Age: 87 Gender: M : 1935 Exam Date: 04/18/2023 17:27 Exam Location: [facility] Ht (in): 68 Wt (lb): 170 Ordering Physician: Michael Us DO Attending/Referring Phys: Michale Us DO Active Directory Administrator Christina Ashby, KIP Procedure CPT: Indications: E60.9 EDEMA, UNSPECIFIED Cardiac Hx: Technical Quality: Good Contrast 1: Total Dose (mL): Contrast 2: Total Dose (mL): MEASUREMENTS (Male / Female) Normal Values 2D ECHO LV Diastolic Diameter PLAX 4.6 cm 4.2 - 5.9 / 3.9 - 5.3 cm LV Systolic Diameter PLAX 3.5 cm IVS Diastolic Thickness 1.2 cm 0.6 - 1.0 / 0.6 - 0.9 cm LVPW Diastolic Thickness 1.3 cm 0.6 - 1.0 / 0.6 - 0.9 cm LV Relative Wall Thickness 0.5 RV Internal Dim ED PLAX 4.7 cm LA Systolic Diameter LX 5.0 cm 3.0 - 4.0 / 2.7 - 3.8 cm LV Diastolic Volume MOD BP 87.3 cm??? 67 - 155 / 56 - 104 cm??? LV Systolic Volume MOD BP 52.8 cm??? / 19 - 49 cm??? LV Ejection Fraction MOD BP 39.5 % >= 55 % LV Cardiac Index MOD BP 1352.5 cm???/min???m??? LV Diastolic Volume MOD 4C 84.7 cm??? LV Systolic Volume MOD 4C 49.0 cm??? LV Ejection Fraction MOD 4C 42.2 % LV Cardiac Index MOD 4C 1402.2 cm???/min???m??? LV Diastolic Length 4C 7.1 cm LV Systolic Length 4C 6.0 cm LV Diastolic Volume MOD 2C 82.9 cm??? LV Systolic Volume MOD 2C 46.6 cm??? LV Ejection Fraction MOD 2C 43.8 % LV Cardiac Index MOD 2C 1425.1 cm???/min???m??? LV Diastolic Length 2C 6.5 cm LV Systolic Length 2C 4.8 cm LA Volume 97.3 cm??? - 58 / 22 - 52 cm??? M-MODE Aortic Root Diameter MM 3.9 cm MV E Point Septal Separation 0.8 cm AV Cusp Separation MM 2.2 cm DOPPLER AV Peak Velocity 126.0 cm/s AV Peak Gradient 6.3 mmHg MV Area PHT 4.3 cm??? MR Peak Velocity 475.9 cm/s MR Peak Gradient 90.6 mmHg MV Deceleration Time 241.1 ms TR Peak Velocity 334.8 cm/s TR Peak Gradient 44.8 mmHg Right Ventricular Systolic Press 48.8 mmHg FINDINGS Left Ventricle Left ventricular ejection fraction is estimated at 40-45 %. Left ventricular cavity size normal. Mildly increased septal wall thickness. Moderately decreased left ventricular ejection fraction. Right Ventricle Moderate right ventricular dilatation. Moderate pulmonary hypertension. Right ventricular systolic pressure estimated at 49 mm hg. Right Atrium Mild right atrial dilatation. Left Atrium Moderately increased left atrial diameter. Severely increased left atrial volume. Moderately increased left atrial area. Mitral Valve Structurally normal mitral valve. Moderate eccentric mitral regurgitation. Aortic Valve Trileaflet aortic valve. Trace aortic regurgitation. Tricuspid Valve Structurally normal tricuspid valve. Moderate tricuspid regurgitation. Pulmonic Valve Structurally normal pulmonic valve. Trace pulmonic regurgitation. Pericardium No pericardial effusion. Aorta Mild aortic dilatation at the level of the sinuses of valsalva 39 mm CONCLUSIONS Left ventricular ejection fraction 40-45% Mildly increased left ventricular wall thickness Moderate right ventricular dilation RVSP 49 Moderately dilated left atrium Moderate eccentric mitral regurgitation Moderate tricuspid regurgitation No pericardial effusion Previewed by: Dr. Cristobal Lee DO (Electronically Signed) Final Date: 19 April 2023 09:26
== END | disposition home or self-care (01) ==
LOC: RADECHMAIN 17:18
PROVIDERS: ATTEND Family Medicine
DX: I08.1 Rheumatic disorders of both mitral and tricuspid valves (principal); R60.0 Localized edema
CPT/HCPCS: 93306

== ENCOUNTER → 2023-04-18 | Outpatient (CLI) | payer MEDICARE, BC ==
--- NOTE | 2023-04-18 10:36 | XR ---
EXAMINATION TYPE: XR Hip Complete RT DATE OF EXAM: 04/18/2023 COMPARISON: NONE HISTORY: Pain TECHNIQUE: 2 views submitted FINDINGS: There is no evidence of erosive change or acute fracture. Calcifications in the pelvis appear to be v ascular. Diffuse osteopenia with mild to moderate arthropathy joint. Bone island overlying the right iliac bon e. IMPRESSION: 1. No evidence of acute fracture or dislocation. The patient is having difficulty with weightbearing or there is high clinical suspicion for fracture correlate with CT scan.
== END | disposition home or self-care (01) ==
LOC: RADXRYALE 09:11
PROVIDERS: ATTEND Family Medicine
DX: M25.551 Pain in right hip (principal)
CPT/HCPCS: 73502

== ENCOUNTER → 2024-01-24 | Outpatient (CLI) | payer MEDICARE, BC ==
--- NOTE | 2024-01-24 16:13 | CT ---
EXAMINATION TYPE: CT abdomen pelvis wo con CT DLP: 394 mGycm, Automated exposure control for dose reduction was used. DATE OF EXAM: 01/24/2024 9:36 AM COMPARISON: CT abdomen pelvis most recent from 12/24/2021 . CLINICAL INDICATION:Male, 88 years old with history of R31.9 HEMATURIA, UNSPECIFIED; hematuria TECHNIQUE: Standard CT of the abdomen and pelvis without IV or oral contrast. Lack of IV or oral co ntrast limits evaluation of solid and hollow organ viscera. Coronal and sagittal reformats were perfo rmed. FINDINGS: LOWER CHEST: Cardiomegaly. Bibasilar subsegmental atelectasis. RCA coronary calcifications. ABDOMEN LIVER: Unremarkable noncontrast appearance GALLBLADDER AND BILE DUCTS: Unremarkable noncontrast appearance PANCREAS: Unremarkable noncontrast appearance SPLEEN: Unremarkable noncontrast appearance ADRENAL GLANDS: Unremarkable noncontrast appearance. KIDNEYS AND URETERS: No evidence of hydronephrosis. Similar atrophy of the right kidney. Bilateral re nal cysts with largest in the left lower pole renal sinus measuring up to 3.3 cm. Bilateral nonobstru ctive renal calculi with a 1.6 x 1.0 cm calculus within the right renal pelvis. There are approximate ly 6 months or 2 right renal calculi. There are approximately 3 nonobstructive left renal calculi wit h largest measuring about 1.1 cm. There are 3 adjacent calculi within the mid right ureter above the crossing of the iliopsoas with largest measuring up to 6 mm. No significant dilatation of the ureter. There is some stranding \surrounding the ureter. There are 2 adjacent calculi within the mid left ur eter above the crossing of the iliopsoas with largest measuring up to 6.5 mm. No significant dilatati on of the ureter. PELVIS BLADDER: Underdistended with urinary bladder stone measuring 1.9 x 1.2 cm. REPRODUCTIVE: Coarse calcifications of the prostate gland are identified. ABDOMEN & PELVIS STOMACH AND BOWEL: Sigmoid diverticulosis without evidence for acute diverticulitis. No focal bowel w all thickening or surrounding inflammatory changes. No evidence of bowel obstruction. The appendix is within normal limits. PERITONEUM: No evidence of pneumoperitoneum or free fluid. VASCULATURE: Mild to moderate atherosclerotic calcifications are present throughout the abdominal aor ta and its branches. No evidence of aortic aneurysm. At least mild stenosis of the bilateral proximal renal artery secondary to calcified plaque. Pelvic phleboliths. MUSCULOSKELETAL: No acute osseous abnormalities. Diffuse bone demineralization. Multilevel degenerati ve changes of the visualized thoracolumbar spine. Most pronounced in the lower lumbar spine. Mild ret rolisthesis of L1 on L2, L2 on L3, and L3 on L4. LYMPH NODES: No gross evidence for lymphadenopathy. SOFT TISSUE/ABDOMINAL WALL: Unremarkable IMPRESSION: 1. Bilateral mid ureteral calculi identified with 3 adjacent on the right and 2 adjacent on the left . No significant dilatation of the ureters. Additionally there are nonobstructive bilateral renal kyle culi with a 1.6 x 1.0 cm calculus within the right renal pelvis with mild dilatation. No overt hydron ephrosis. Additional urinary bladder calculus identified. Urology consultation is recommended. 2. Sigmoid diverticulosis.
== END | disposition home or self-care (01) ==
LOC: RADCTMAIN 09:10
PROVIDERS: ATTEND Family Medicine
DX: N18.30 Chronic kidney disease, stage 3 unspecified (principal); R35.0 Frequency of micturition; N20.2 Calculus of kidney with calculus of ureter; N21.0 Calculus in bladder; K57.30 Diverticulosis of large intestine without perforation or abscess without bleeding; R31.9 Hematuria, unspecified
CPT/HCPCS: 74176

== ENCOUNTER → 2024-01-26 | Outpatient (CLI) | payer MEDICARE, BC ==
--- NOTE | 2024-01-26 18:48 | US ---
EXAMINATION TYPE: US arterial LE single level DATE OF EXAM: 01/26/2024 10:48 AM CLINICAL INDICATION: Male, 88 years old with history of M62.81 MUSCLE WEAKNESS (GENERALIZED); leg wea kness History of: Smoker: No Hypertension: No Diabetic: No Hyperlipidemia: No TIA/CVA: No Previous Vascular Surgery: No CAD: No WV: No Vascular Ulcers: No Claudication: No Gangrene: No Right Brachial Pressure: 132 Left Brachial Pressure: 134 Ankle-Brachial Indices: Right: cno both DPA and TOOL GRINDER OPERATOR SURFACE Left: cno both DPA and TOOL GRINDER OPERATOR SURFACE (Vessel hardening > 1.4; Normal 0.9 - 1.4, Moderate 0.7 - 0.9, Severe 0.5-0.7) Biphasic waveforms throughout both lower extremities. IMPRESSION: Nondiagnostic examination with inability to obtain ankle brachial indices bilaterally. C onsider further evaluation with CTA runoff.
== END | disposition home or self-care (01) ==
LOC: RADUSWWP 09:40
PROVIDERS: ATTEND Family Medicine
DX: M62.81 Muscle weakness (generalized) (principal); R53.83 Other fatigue; R29.6 Repeated falls
CPT/HCPCS: 93922

== ENCOUNTER → 2024-02-19 | Outpatient (CLI) | payer MEDICARE, BC ==
--- NOTE | 2024-02-19 13:02 | CT ---
EXAMINATION TYPE: CT lumbar spine wo con CT DLP: 515.2 mGycm, Automated exposure control for dose reduction was used. DATE OF EXAM: 02/19/2024 12:34 PM COMPARISON: None. CLINICAL INDICATION:Male, 88 years old with history of M54.50 low back pain; PHH, LOW BACK PAIN TECHNIQUE: Multiple axial images were obtained from the midportion of T11 through the sacroiliac justina nts. Soft tissue and bone windows in coronal and sagittal planes were obtained and reviewed. 3-D ref ormats of the bones were created on a separate workstation and submitted for review. Contrast used: mL of , (None, if empty). Oral contrast used: (None, if empty). FINDINGS: Alignment: There are 5 lumbar type vertebral bodies within normal AP alignment. Very mild left conv ex scoliosis Bone: Vertebral body heights are maintained. Multilevel loss of the lumbar spine. Moderate endplate spondylosis Soft tissues: 12 mm right ureteropelvic junction calculus. Numerous other calculus. Nonobstructing 12 mm calculus is adjacent smaller 6 mm nonobstructing calculus left kidney Discs: T12-L1: No spinal canal or neural foraminal stenosis is identified. L1-L2: No spinal canal or neural foraminal stenosis is identified. L2-L3: No spinal canal or neural foraminal stenosis is identified. L3-L4: Diffuse disc bulge some disc osteophyte. Ligamentum flavum thickening [id number] central canal stenosis L4-L5: Vacuum disc phenomenon with diffuse disc bulge and disc osteophyte. Ligamentum flavum thickeni ng resulting in mild central canal stenosis. Extruded disc with inferior migration L5-S1: No spinal canal or neural foraminal stenosis is identified. Other: None IMPRESSION: 1. Diffuse disc bulge and well L3-4 and L4-5 with ligamentum flavum thickening and mild to moderate c entral canal stenosis at L3-4. Only mild central canal stenosis L4-5. L4-5 extruded disc with inferi or migration 2. Multilevel degenerative disc disease moderate to severe endplate spondylosis and several vacuum di scs. 3. 12 mm obstructing right UVJ stone. Right kidney atrophy. Numerous bilateral nephroliths.
== END | disposition home or self-care (01) ==
LOC: RADCTMAIN 12:07
PROVIDERS: ATTEND Family Medicine
DX: M51.36 Other intervertebral disc degeneration, lumbar region (principal); M47.816 Spondylosis without myelopathy or radiculopathy, lumbar region; M51.26 Other intervertebral disc displacement, lumbar region; M48.061 Spinal stenosis, lumbar region without neurogenic claudication; M46.1 Sacroiliitis, not elsewhere classified; N26.1 Atrophy of kidney (terminal)
CPT/HCPCS: 72131

== ENCOUNTER → 2024-04-08 | Outpatient (CLI) | payer MEDICARE, BC ==
--- NOTE | 2024-04-08 13:00 | XR ---
EXAMINATION TYPE: XR KUB DATE OF EXAM: 04/08/2024 12:54 PM CLINICAL INDICATION: Male, 88 years old with history of N20.0 calculus; [facility] COMPARISON: 02/19/2024. 01/19/2022.. TECHNIQUE: One radiographic view of the abdomen was obtained. FINDINGS: The bowel gas pattern is nonspecific without dilated loops of small or large bowel. . Fecal material and gas are demonstrated throughout the colon and rectum. There is no evidence for organomegaly or pneumoperitoneum. The osseous structures are intact. Bilat eral renal calculi measuring up to 17 mm on the right and 15 mm on the left. These both appear increa sed in size from prior. Multiple calcific lesions project over the pelvis is well. On CT imaging ther e is a right calculus is in the right renal pelvis and the left is in the proximal ureter on 4 IMPRESSION: 1. Bilateral renal calculi project over the kidneys. These have increased in size compared to prior plain film. On CT 02/19/2024 there is right renal pelvis calculi within left proximal ureter calculus. 2. Nonspecific bowel gas pattern without radiographic evidence for acute process.
== END | disposition home or self-care (01) ==
LOC: RADXRMAIN 12:36
PROVIDERS: ATTEND Urology
DX: N20.2 Calculus of kidney with calculus of ureter (principal)
CPT/HCPCS: 74018

== ENCOUNTER → 2024-04-22 | Outpatient (CLI) | payer MEDICARE, BC ==
[2024-04-22 15:19] LABS: ALT 33 U/L (10-49); AST 26 U/L (14-35); Albumin 3.6 g/dL (3.8-4.9); Albumin/Globulin Ratio 1.71 Ratio (1.60-3.17); Alkaline Phosphatase 89 U/L (41-126); BUN/Creat Ratio 16.46 Ratio (12.00-20.00); Blood Urea Nitrogen 21.4 mg/dL (9.0-27.0); Calcium 9.6 mg/dL (8.7-10.3); Carbon Dioxide 26.2 mmol/L (21.6-31.8); Chloride 108 mmol/L (96-109); Globulin 2.1 g/dL (1.6-3.3); Glucose 97 mg/dL (70-110); Potassium 4.8 mmol/L (3.5-5.5); Sodium 142 mmol/L (135-145); Total Bilirubin 0.6 mg/dL (0.3-1.2); Total Protein 5.7 g/dL (6.2-8.2)
[2024-04-22 15:39] LABS: Appearance,Urine Cloudy (Clear); Bilirubin,Urine Negative (Negative); Blood,Urine Large (Negative); Color,Urine Yellow (Yellow); Ketones,Urine Negative (Negative); Nitrite,Urine Negative (Negative); Specific Gravity,Urine 1.017 (1.001-1.030)
[2024-04-22 15:57] LABS: Bacteria,Urine None Seen (None Seen)
[2024-04-22 16:17] LABS: Basophils # (A) 0.03 X 10*3/uL (0.00-0.10); Basophils % (A) 0.5 %; Eosinophils # (A) 0.18 X 10*3/uL (0.04-0.35); Eosinophils % (A) 2.9 %; HCT 38.8 % (39.6-50.0); HGB 12.1 g/dL (13.0-17.0); Lymphocytes # (A) 0.46 X 10*3/uL (0.90-5.00); Lymphocytes % (A) 7.4 %; MCH 29.4 pg (27.0-32.0); MCHC 31.2 g/dL (32.0-37.0); MCV 94.4 FL (80.0-97.0); Mean Platelet Volume 13.4 FL (9.5-12.2); Monocytes % (A) 8.1 %; NRBC Per 100 WBC 0 X 10*3/uL (0.00-0.01); Neutrophils # (A) 4.96 X 10*3/uL (1.80-7.70); Neutrophils % (A) 80.3 %; Platelet Count 89 X 10*3/uL (140-440); RBC 4.11 X 10*6/uL (4.40-5.60); RBC Morphology Normal (Normal); RDW 16.3 % (11.5-14.5); WBC 6.18 X 10*3/uL (4.50-10.00)
== END | disposition home or self-care (01) ==
LOC: LABPAT 12:02
PROVIDERS: ATTEND Urology
DX: Z01.812 Encounter for preprocedural laboratory examination (principal); N20.0 Calculus of kidney
CPT/HCPCS: 36415; 80053; 81001; 85025; 86850; 86900; 86901; 87086

== ENCOUNTER → 2024-04-22 | Outpatient (CLI) | payer MEDICARE, BC ==
--- NOTE | 2024-04-22 18:20 | US ---
EXAMINATION TYPE: US carotid duplex BILAT DATE OF EXAM: 04/22/2024 COMPARISON: NONE CLINICAL INDICATION: Male, 88 years old with history of R41.82,R42; dizziness TECHNIQUE: Carotid duplex ultrasound examination. Indirect Doppler criteria was utilized. 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 No significant stenosis seen IMPRESSION: No evidence of hemodynamically significant stenosis. Criteria for Assigning % of Stenosis / Diameter reduction (Estimation based on the indirect measurements of the internal carotid artery velocities (ICA PSV). 1. Normal (no stenosis)=ICA PSV < 125 cm/s: ratio < 2.0: ICA EDV<40 cm/s. 2. Less than 50% stenosis=ICA PSV < 125 cm/s: ratio < 2.0: ICA EDV<40 cm/s. 3. 50 to 69% stenosis=ICA PSV of 125 to 230 cm/s: ration 2.0 ? 4.0: ICA EDV 40-100 cm/s. 4. Greater than 70% stenosis to near occlusion= ICA PSV > 230 cm/s: ratio > 4.0: ICA EDV > 100 cm/s. 5. Near occlusion= ICA PSV velocities may be low or undetectable: variable ratio and ICA EDV. 6. Total occlusion=unable to detect flow. [facility], , 04/22/2024 6:17 PM
--- NOTE | 2024-04-22 18:45 | MR ---
INDICATION: Patient age:Male; 88 years old; Reason for study: R41.82 ALTERED MENTAL STATE,R44.1 VISUAL HALLUCINA; [facility]. COMPARISON: MR brain 07/06/2016, MRA head 07/06/2016. TECHNIQUE: Multi planar, multi sequence imaging was performed through the brain. The patient was then given 6 cc of Gadavist intravenously and multi planar, T1 fat-saturation images were obtained. FINDINGS: The cleary-white junctions and basal cisterns appear unremarkable. Age-appropriate cerebral volume loss with prominence of the ventricular system and peripheral sulci. Diffusion-weighted imaging shows no evidence of restricted diffusion to suggest acute/subacute infarct. Intracranial arterial flow voids are maintained. Midline structures show no abnormality. Progression of patchy and confluent areas of high T2/FLAIR signal intensity within the subcortical and periventricular white matter diffusely. Latrell e of these are somewhat perpendicular orientation to the ventricles again. Additional regions within the ethan and midbrain. 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 [facility] eptibility weighted images do not reveal any evidence for micro-hemorrhage. After administration of g adolinium, no abnormal enhancement is seen. The bone marrow signal is within normal limits. Bilateral aphakia. Mild mucosal thickening of the eth moid sinuses and right maxillary sinus. IMPRESSION: 1. No evidence of intracranial mass, acute/subacute infarct, or abnormal enhancement. 2. Progression of nonspecific white matter changes from prior MRI 07/06/2016. Etiologies include chron ic small vessel ischemic disease versus demyelination such as multiple sclerosis versus other etiolog ies. [facility], , 04/22/2024 6:42 PM
--- NOTE | 2024-04-22 18:56 | MR ---
EXAMINATION TYPE: MR cervical spine wo con DATE OF EXAM: 04/22/2024 COMPARISON: MR cervical spine 01/28/2015 HISTORY: neck pain. dizziness. paresthesia of skin. TECHNIQUE: Multiplanar, multisequence images of the cervical spine were acquired without contrast. FINDINGS: Alignment: The cervical vertebral bodies have preserved heights. Alignment is within normal limits gi melly patient positioning. Bones: Bone signal is within normal limits. Multilevel osteophytosis most pronounced at C4-C6. Cord: The spinal cord is unremarkable with regards to their signal intensity and morphology. Discs: Multilevel disc desiccation is present. C2-C3: No significant disc pathology. The spinal canal is patent. No neural foraminal stenosis. C3-C4: Broad-based disc bulge without significant effacement of the anterior thecal sac. No significa nt central canal stenosis. Uncovertebral joint hypertrophy with right-sided facet arthropathy result ing in mild right neuroforaminal narrowing. The left neural foramen is patent. C4-C5: Disc osteophyte complex with left paracentral disc protrusion with mild effacement of the ante rolateral thecal sac. Mild left neural foraminal narrowing. The right neural foramen is patent. C5-C6: Broad-based disc bulge with mild effacement of the anterior thecal sac. Uncovertebral joint h ypertrophy with minimal left neural foraminal narrowing. The right neural foramen is patent. C6-C7: Broad-based disc bulge without effacement of the anterior thecal sac. Uncovertebral joint hyp ertrophy with minimal left neural foraminal narrowing. The right neural foramen is patent. C7-T1: No significant disc pathology. The spinal canal is patent. No neural foraminal stenosis. Other: None. 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 Overall similar to prior exam. C4 -C5 small left paracentral disc resulting in mild effacement of the anterolateral thecal sac and mild left neural foraminal narrowing. [facility], , 04/22/2024 6:54 PM
== END | disposition home or self-care (01) ==
LOC: RADUSWWP 13:07
PROVIDERS: ATTEND Family Medicine
DX: M50.322 Other cervical disc degeneration at C5-C6 level (principal); M50.323 Other cervical disc degeneration at C6-C7 level; M50.31 Other cervical disc degeneration, high cervical region; R41.82 Altered mental status, unspecified; R42 Dizziness and giddiness; R20.2 Paresthesia of skin
CPT/HCPCS: 70553; 72141; 93880

== ENCOUNTER 2024-05-01 07:44 | Day surgery (SDC) | payer MEDICARE, BC ==
[2024-04-23 14:13] VITALS: BMI 22.8
--- NOTE | 2024-04-30 10:53 | P.GSHP ---
History of Present Illness H&P Date: 04/30/24 88 yo male with kidney stone disease. He recently passed stones on the left side. He has been having right flank pain and was identified with a 177 right upj stone plus multiple other renal stones totalling greater than 2.5 cm. He comes for a right pcnl to remove the painful right renal stones. - Constitutional Constitutional: Denies chills, Denies fever - EENT Eyes: denies blurred vision, denies pain Ears, nose, mouth and throat: Denies headache, Denies sore throat - Cardiovascular Cardiovascular: Denies chest pain, Denies shortness of breath - Respiratory Respiratory: Denies cough, Denies 7 - Gastrointestinal Gastrointestinal: Denies abdominal pain, Denies diarrhea, Denies nausea, Denies vomiting - Genitourinary (Female) Genitourinary: Denies dysuria, Denies hematuria - Genitourinary (Male) Genitourinary: Denies dysuria, Denies hematuria - Musculoskeletal Musculoskeletal: Denies myalgias - Integumentary Integumentary: Denies pruritus, Denies rash - Neurological Neurological: Denies numbness, Denies weakness - Psychiatric Psychiatric: Denies anxiety, Denies depression - Endocrine Endocrine: Denies fatigue, Denies weight change Past Medical History Past Medical History: Atrial Fibrillation, Eye Disorder, GERD/Reflux, Hearing Disorder / Deafness, Hypertension, Prostate Disorder Additional Past Medical History / Comment(s): spouse stated had episode at home while in the shower had confusion was not able to work the faucets in the shower ,spouse had to help pt out of the shower, at this time he was stating he needed a drink of water and trying to drink out of the toothbrush ham[place], was seen at Dr Grullon's office- stated Dr Grullon thought it was related to UTI but did US of carotids and MRI of the brain and cerivcal neck on 04-22-24- pt to have follow up appt with Dr Grullon and Dr Grullon to do medical clearance for upcoming surgery with Dr Arias, Hx kidney stones, enlarged prostate; Right eye glaucoma, retinal issues/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 bilateral use of hearing aids. SEASONAL ALLERGIES, SOME MILD DYSPHAGIA-has had dilation in the past History of Any Multi-Drug Resistant Organisms: None Reported Past Surgical History: Hernia Repair, Joint Replacement Additional Past Surgical History / Comment(s): 3 right eye surgeries, total right shoulder, EGD with dilation, hernia repair X2-inguinal hernia, lithotripsy. COLONOSCOPY. SINUS SURG. Past Anesthesia/Blood Transfusion Reactions: No Reported Reaction Additional Past Anesthesia/Blood Transfusion Reaction / Comment(s): NO BLOOD TRANSFUSION Smoking Status: Never smoker - Past Family History Mother Family Medical History: Hypertension Father Additional Family Medical History / Comment(s): twisted carotid artery Medications and Allergies Home Medications Medication Instructions Recorded Confirmed Type Brinzolamide/Brimonidine Tart 1 drop RIGHT EYE 1200,1800 05/24/18 04/23/24 History [Simbrinza 1%-0.2% Eye Drops] Latanoprost/Pf [Latanoprost 0.005% 1 drop BOTH EYES HS 05/24/18 04/23/24 History Eye Drop] Omeprazole 40 mg PO QAM 05/24/18 04/23/24 History atenoloL [Tenormin] 25 mg PO QAM 05/24/18 04/23/24 History lisinopriL 40 mg PO 1800 05/24/18 04/23/24 History Apixaban [Eliquis] 2.5 mg PO BID 01/17/22 04/23/24 History Tamsulosin HCl [Flomax] 0.4 mg PO BID 01/17/22 04/23/24 History Loteprednol Etabonate 1 drop RIGHT EYE QAM 04/23/24 04/23/24 History Allergies Allergy/AdvReac Type Severity Reaction Status Date / Time No Known Allergies Allergy Verified 04/23/24 13:44 Results - Imaging CT scan - abdomen: report reviewed, image reviewed CT scan - pelvis: report reviewed, image reviewed Assessment and Plan Assessment: Impression: painful right renal stones[>2.5cm]. afib, htn Plan: right pcnl
[~2024-05-01 07:44] MED LIST changes: -LACTATED RINGERS 1,000 ML IV SCH; -LIDOCAINE 1% (10MG/ML) FOR IV START INTRADERMA PRN; -ONDANSETRON 4 MG/2 ML VIAL IVP ONE
[2024-05-01] MEDS: IV FLUID CONTINUATION 1,000 ML IV ONE ×3 (08:14→11:22)
[2024-05-01] MEDS: DEXAMETHASONE SOD PHOSPHATE 4 MG/ML 1 ML VIAL IV ONE (08:46)
[2024-05-01] MEDS: ONDANSETRON 4 MG/2 ML VIAL IVP ONE (08:46)
[2024-05-01] MEDS: LACTATED RINGERS 1,000 ML IV SCH (08:46)
[2024-05-01] MEDS ORDERED: NEOSTIGMINE 1 MG/ML 10 ML VIAL ONE (09:34)
[2024-05-01] MEDS ORDERED: ROCURONIUM 10 MG/ML (5 ML VIAL) IV ONE (09:34)
[2024-05-01] MEDS ORDERED: LIDOCAINE 1% INJ 10MG/ML (20 ML MDV) ONE (09:34)
[2024-05-01] MEDS ORDERED: PROPOFOL 10 MG/ML 20 ML VIAL IV ONE (09:34)
[2024-05-01] MEDS ORDERED: GLYCOPYRROLATE 0.2 MG/ML 2 ML VIAL ONE (09:34)
[2024-05-01] MEDS ORDERED: PHENYLEPHRINE-0.9% NACL SYG 1,000 MCG/10 ML SYRINGE ONE (09:34)
[2024-05-01] MEDS ORDERED: fentaNYL (PF) 50 MCG/ML 2 ML AMP ONE (09:34)
[2024-05-01] MEDS ORDERED: SUCCINYLCHOLINE CHLORIDE 200 MG/10 ML VIAL IV ONE (09:34)
[2024-05-01] MEDS: IOPAMIDOL-370 100ML BTL MISCELLANE ONE (10:18)
--- NOTE | 2024-05-01 11:14 | P.OP ---
Date of Procedure: 05/01/24 Preoperative Diagnosis: right renal stones, large Postoperative Diagnosis: right renal stones, right ureteral stones (4), bladder stones, large Procedure(s) Performed: cystoscopy, cystolithotripsy, right ureteroscopy with laser lithotripsy and stone basketing, placement of 624 double-J catheter Anesthesia: ANDRE Surgeon: Bernardo Arias Estimated Blood Loss (ml): 25 Pathology: other Condition: stable (stone) Disposition: PACU Indications for Procedure: patient is 88. He has right flank pain. He is found to have an almost 2 cm right renal pelvic stone with multiple small satellites. He comes for right percutaneous nephrostolithotomy. The KUB preoperatively suggests however there may be ureteral and/or bladder stones this will be evaluated intraoperatively Description of Procedure: patient brought to the operating suite. He is given a general anesthetic. He's placed lithotomy position on the transport gurney with sterile prep and drape. Cystoscopy Foroblique lens and 21-Arabic sheath identifies a large vascular prostate. Upon entering the bladder severe trabeculation and there are 3 large bladder stones over 2 cm in diameter and collection. He's taking and placed on the operating table in lithotomy position with a recent prep and drape. A reentry in the cystoscope into the bladder. With the 500 laser probe the stones are broken into tiny fragments and flushed out of the bladder. With some difficulty eventually identify the right ureteral orifice. I passed an 035 wire up in the obstruction. I passed an open-ended catheter up the right ureter and then eventually able to pass a wire by the stones. I passed the semirigid scope alongside the wire and identify for ureteral stones. With the 275 laser probe the stones are broken into tiny fragments and basket out of the right ureter. Due to his age and the amount of procedure I elected terminate the procedure. The wires backloaded on the cystoscope and a 6 x 24 double-J catheters passed over the wire that coils in the renal pelvis and the bladder Cline catheters placed. The patient is awake and returned recovery in good condition The patient has had successful bladder andright ureteral stones removed. He'll need a right percutaneous nephrostolithotomy at a later date. Since been discussed with the .
--- NOTE | 2024-05-01 11:35 | FL ---
EXAMINATION TYPE: FL guidance operating room DATE OF EXAM: 05/01/2024 11:04 AM COMPARISON: Pre Operative Images if available both CT/MRI or plain film CLINICAL INDICATION: Male, 88 years old with history of Rt Renal Stone, RT URETERAL STONE; TECHNIQUE: FL guidance operating room, multiple fluoroscopic images provided for procedure. Total fluoroscopy time: 17.3 seconds Total submitted images to PACS: 6 DAP: 1.7206 mGym2 Gycm2 uGym2 cGycm2 or equivalent. FINDINGS: Fluoroscopic images during retrograde pyelogram guidewire in the right renal collecting system. No im mediate complication identified. Multilevel degeneration changes and sacroiliac joints. Right renal c alculus. The renal pelvis measuring up to 20 mm with additional cuts are present. IMPRESSION: 1. No evidence for intraoperative complication. 2. Please see the operative/procedural note for further details. [facility], , 05/01/2024 11:33 AM
[2024-05-01] MEDS ORDERED: ACETAMINOPHEN TAB 325 MG TAB PO PRN (13:10)
--- NOTE | 2024-05-01 13:28 | XR ---
EXAMINATION TYPE: XR KUB DATE OF EXAM: 05/01/2024 8:11 AM CLINICAL INDICATION: Male, 88 years old with history of N20.0 right renal stone; [facility] COMPARISON: None. TECHNIQUE: One radiographic view of the abdomen was obtained. FINDINGS: The bowel gas pattern is nonspecific without dilated loops of small or large bowel. . Fecal material and gas are demonstrated throughout the colon and rectum. There is no evidence for organomegaly or pneumoperitoneum. The osseous structures are intact. Calcif ications project over the bilateral renal fossae on the right measuring up to 20 mm on the left measu ring up to 11 mm. Multilevel degeneration changes throughout this spine. IMPRESSION: Calcification projecting over the urinary bladder bilateral renal sinuses. [facility], , 05/01/2024 1:25 PM
[2024-05-01] MEDS: DEXTROSE 5%-0.45% NACL 1,000 ML IV SCH (15:29)
[2024-05-01] MEDS: lisinopriL 20 MG TAB PO SCH (17:31)
[2024-05-01] MEDS: KETOROLAC 15 MG/ML 1 ML VIAL IVP PRN (22:20)
--- NOTE | 2024-05-02 08:03 | P.PN ---
Subjective Progress Note Date: 05/02/24 first post operative day from a cystolithotripsy, right ureteroscopy with laser lithotripsy and stent. He was kept in the hospital last night because pf prostate bleeding[large prostate]. the cath had to be irrigated. The urine is dark red, not fresh bleeding He had to be irrigated last night. I will observe him 24 hours longer to make sure there are no cath problems I will keep the cath until early next week He will need a rt pcnl lat a later date this has been discussed. Objective - Vital Signs Vital signs: Vital Signs Temp 97.7 F 05/02/24 01:03 Pulse 82 05/02/24 01:03 Resp 16 05/02/24 01:03 BP 123/84 05/02/24 01:03 Pulse Ox 95 05/02/24 01:03 FiO2 Intake & Output 05/01/24 05/02/24 05/02/24 18:59 06:59 18:59 Intake Total 1050 Output Total 650 650 Balance 400 -650 Weight 68.5 kg Intake: IV 1050 Output: Urine 650 650 Other: Voiding Method Indwelling Catheter
[2024-05-02] MEDS: atenoloL 25 MG TAB PO SCH (09:09)
--- NOTE | 2024-05-03 07:49 | P.DS ---
Providers Attending physician: Bernardo Arias Primary care physician: [facility] Course: the patient was in the hospital 05/01/24 for percutaneous nephrostolithotomy, right. He ended up undergoing a cystoscopy lithotripsy of large bladder stones as well as a right ureteroscopy laser lithotripsy stent placement. I did not do the percutaneous nephrostolithotomy. Due to his large prostate it is significant amount of bleeding thus a catheters placed and he was observed in the hospital for 48 hours. The urine is clearing appropriately. He'll be discharged home today. He'll follow in the office Monday for catheter removal. At that time we'll set him up for his percutaneous nephrostolithotomy in a couple of weeks. His condition is good. Diet is regular. He resume his medications other than his blood thinner. Plan - Discharge Summary Discharge Rx Participant: No New Discharge Prescriptions: No Action Latanoprost/Pf [Latanoprost 0.005% Eye Drop] 1 drop BOTH EYES HS Brinzolamide/Brimonidine Tart [Simbrinza 1%-0.2% Eye Drops] 1 drop RIGHT EYE 1200,1800 lisinopriL 40 mg PO 1800 atenoloL [Tenormin] 25 mg PO QAM Omeprazole 40 mg PO QAM Apixaban [Eliquis] 2.5 mg PO BID Tamsulosin HCl [Flomax] 0.4 mg PO BID Loteprednol Etabonate 1 drop RIGHT EYE QAM Discharge Medication List Brinzolamide/Brimonidine Tart [Simbrinza 1%-0.2% Eye Drops] 1 drop RIGHT EYE 1200,1800 05/24/18 [History] Latanoprost/Pf [Latanoprost 0.005% Eye Drop] 1 drop BOTH EYES HS 05/24/18 [History] Omeprazole 40 mg PO QAM 05/24/18 [History] atenoloL [Tenormin] 25 mg PO QAM 05/24/18 [History] lisinopriL 40 mg PO 1800 05/24/18 [History] Apixaban [Eliquis] 2.5 mg PO BID 01/17/22 [History] Tamsulosin HCl [Flomax] 0.4 mg PO BID 01/17/22 [History] Loteprednol Etabonate 1 drop RIGHT EYE QAM 04/23/24 [History] Follow up Appointment(s)/Referral(s): Bernardo Arias MD [STAFF PHYSICIAN] - 05/06/24 (home with figueroa monday in offic e to remove) Patient Instructions/Handouts: Figueroa Catheter Placement and Care (DC), Urethral Stent Placement (DC), Lithotripsy (DC) Activity/Diet/Wound Care/Special Instructions: home with figueroa Discharge Disposition: HOME SELF-CARE
[2024-05-03 08:49] VITALS: BP 144/87; PULSE 76; RESP 20; TEMP 97.6
== END 2024-05-03 14:00 | disposition home or self-care (01) ==
LOC: OR 07:44 → 4SSUR 12:05 → OR 05-03 14:00
PROVIDERS: ATTEND Urology
DX: N20.0 Calculus of kidney
CPT/HCPCS: 74018; 82365

== ENCOUNTER → 2024-05-22 | Outpatient (CLI) | payer MEDICARE, BC ==
[2024-05-22 12:17] LABS: Basophils % (A) 0 %; Eosinophils # (A) 0.2 k/uL (0-0.7); Eosinophils % (A) 4 %; HCT 35.1 % (39.0-53.0); HGB 11.2 gm/dL (13.0-17.5); Hypochromasia Moderate; Lymphocytes # (A) 0.5 k/uL (1.0-4.8); Lymphocytes % (A) 11 %; MCH 30.4 pg (25.0-35.0); MCV 95.1 fL (80.0-100.0); Mean Platelet Volume 10.5; Monocytes # (A) 0.4 k/uL (0-1.0); Monocytes % (A) 8 %; Neutrophils # (A) 3.3 k/uL (1.3-7.7); Neutrophils % (A) 75 %; Platelet Count 104 k/uL (150-450); RBC 3.69 m/uL (4.30-5.90); RDW 15.2 % (11.5-15.5); WBC 4.4 k/uL (3.8-10.6)
[2024-05-22 12:36] LABS: African American GFR (CKD) 52 (>60 ml/min/1.73 sqM); Anion Gap 4 mmol/L; Blood Urea Nitrogen 22 mg/dL (9-20); Calcium 9.4 mg/dL (8.4-10.2); Carbon Dioxide 29 mmol/L (22-30); Chloride 108 mmol/L (98-107); Glucose 75 mg/dL (74-99); Non-African American GFR(CKD) 45 (>60 ml/min/1.73 sqM); Potassium 4.6 mmol/L (3.5-5.1); Sodium 141 mmol/L (137-145)
[2024-05-22 14:07] LABS: Appearance,Urine Cloudy (Clear); Bilirubin,Urine Negative (Negative); Blood,Urine Large (Negative); Color,Urine Light Red; Glucose,Urine (UA) Negative (Negative); Ketones,Urine Negative (Negative); Leukocyte Esterase,Urine Large (Negative); Mucus,Urine Rare /hpf; Nitrite,Urine Negative (Negative); Protein,Urine 2+ (Negative); RBC,Urine >182 /hpf (0-5); Specific Gravity,Urine 1.016 (1.001-1.035); Urobilinogen,Urine <2.0 mg/dL (<2.0); WBC,Urine 8 /hpf (0-5)
== END | disposition home or self-care (01) ==
LOC: PAT 11:25
PROVIDERS: ATTEND Urology
DX: Z01.812 Encounter for preprocedural laboratory examination (principal); N20.0 Calculus of kidney
CPT/HCPCS: 80048; 81001; 85025; 86850; 86900; 86901; 87086

== ENCOUNTER 2024-05-29 05:47 | Inpatient (IN) | payer MEDICARE, BC ==
--- NOTE | 2024-05-28 19:27 | P.GSHP ---
History of Present Illness H&P Date: 05/28/24 88 yo male with active kidney stone disease.. He recently had a cystolithotripsy and a right distal ureteroscopy with laser lithotripsy . He has a 2 cm right renal pelvic stone as well as multiple small calyceal satellite stones. He now comes for a right pcnl the risks and complications have been discussed. - Constitutional Constitutional: Denies chills, Denies fever - EENT Eyes: denies blurred vision, denies pain Ears, nose, mouth and throat: Denies headache, Denies sore throat - Cardiovascular Cardiovascular: Denies chest pain, Denies shortness of breath - Respiratory Respiratory: Denies cough, Denies 7 - Gastrointestinal Gastrointestinal: Denies abdominal pain, Denies diarrhea, Denies nausea, Denies vomiting - Genitourinary (Female) Genitourinary: Denies dysuria, Denies hematuria - Genitourinary (Male) Genitourinary: Denies dysuria, Denies hematuria - Musculoskeletal Musculoskeletal: Denies myalgias - Integumentary Integumentary: Denies pruritus, Denies rash - Neurological Neurological: Denies numbness, Denies weakness - Psychiatric Psychiatric: Denies anxiety, Denies depression - Endocrine Endocrine: Denies fatigue, Denies weight change Past Medical History Past Medical History: Atrial Fibrillation, Eye Disorder, GERD/Reflux, Hearing Disorder / Deafness, Hypertension, Prostate Disorder Additional Past Medical History / Comment(s): Hx kidney stones, enlarged prostate; Right eye glaucoma, retinal issues/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 bilateral use of hearing aids. SEASONAL ALLERGIES. BRADYCARDIA. SOME MILD DYSPHAGIA, recent UTI-resolved, hx. low platelets in past-saw hemat. but was told no concerns, no need to follow up History of Any Multi-Drug Resistant Organisms: None Reported Past Surgical History: Hernia Repair, Joint Replacement Additional Past Surgical History / Comment(s): 3 right eye surgeries, total right shoulder, EGD with dilation, hernia repair X2, lithotripsy. COLONOSCOPY. SINUS SURG., cysto/litho. w/right stent 05/01/24 Past Anesthesia/Blood Transfusion Reactions: No Reported Reaction Additional Past Anesthesia/Blood Transfusion Reaction / Comment(s): NO BLOOD TRANSFUSION Smoking Status: Never smoker - Past Family History Mother Family Medical History: Hypertension Medications and Allergies Home Medications Medication Instructions Recorded Confirmed Type Brinzolamide/Brimonidine Tart 1 drop RIGHT EYE 1200,1800 05/24/18 05/28/24 History [Simbrinza 1%-0.2% Eye Drops] Latanoprost/Pf [Latanoprost 0.005% 1 drop BOTH EYES HS 05/24/18 05/28/24 History Eye Drop] Omeprazole 40 mg PO QAM 05/24/18 05/28/24 History atenoloL [Tenormin] 25 mg PO QAM 05/24/18 05/28/24 History lisinopriL 40 mg PO 1800 05/24/18 05/28/24 History Apixaban [Eliquis] 2.5 mg PO BID 01/17/22 05/28/24 History Tamsulosin HCl [Flomax] 0.4 mg PO BID 01/17/22 05/28/24 History Loteprednol Etabonate 1 drop RIGHT EYE QAM 04/23/24 05/28/24 History Allergies Allergy/AdvReac Type Severity Reaction Status Date / Time No Known Allergies Allergy Verified 05/28/24 09:41 Surgical - Exam - General well developed, well nourished, no distress - Eyes normal ocular movement, no icteric - ENT no hearing loss, no congestion - Neck no masses, trachea midline - Respiratory normal respiratory effort, clear to auscultation - Abdomen Abdomen: soft, non tender, no guarding, no rigid, no rebound - Integumentary no rash, no abnormal pigmentation - Neurologic no disoriented, no combative - Psychiatric oriented to time, oriented to person, oriented to place, speech is normal, memory intact Results - Imaging Abdominal x-ray: report reviewed, image reviewed CT scan - abdomen: report reviewed, image reviewed CT scan - pelvis: report reviewed, image reviewed Assessment and Plan Assessment: Impression: right renal stone, large with smaller calyceal stones. Plan: right pcnl
[~2024-05-29 05:47] MED LIST changes: +GENTAMICIN 100 MG in SODIUM CHLORIDE 0.9% 100 ML IVPB PRN; -HYDROmorphone 0.5 MG/0.5 ML SYRINGE IVP PRN
[2024-05-29] MEDS ORDERED: LIDOCAINE 1% (10MG/ML) FOR IV START INTRADERMA PRN (05:54)
--- NOTE | 2024-05-29 06:26 | XR ---
EXAMINATION TYPE: XR KUB DATE OF EXAM: 05/29/2024 6:18 AM CLINICAL HISTORY: Right renal stone. TECHNIQUE: Two supine KUB images of the abdomen are obtained. COMPARISON: Abdominal x-ray May 01, 2024. FINDINGS: Several bilateral renal calculi redemonstrated. New right double-J ureter stent with proxim al portion overlies 16 mm calculus. The calcifications in the periphery of the pelvis favor phlebolit hs. Prior large calcification in the central pelvis is smaller thought to reflect reflect bladder kyle culus at the inferior aspect of stent. Overall nonobstructive bowel gas pattern. Multilevel spurring and disc space narrowing in the lumbar spine is present. IMPRESSION: As above [facility], , 05/29/2024 6:24 AM
[2024-05-29] MEDS: DEXAMETHASONE SOD PHOSPHATE 4 MG/ML 1 ML VIAL IV ONE (06:43)
[2024-05-29] MEDS: LACTATED RINGERS 1,000 ML IV SCH (06:43)
[2024-05-29] MEDS: ONDANSETRON 4 MG/2 ML VIAL IVP ONE (06:43)
[2024-05-29] MEDS: IV FLUID CONTINUATION 1,000 ML IV ONE ×2 (06:56→10:44)
[2024-05-29] MEDS ORDERED: MIDAZOLAM 2 MG/2 ML VIAL IV PRN (07:00)
[2024-05-29] MEDS ORDERED: HYDROmorphone 0.5 MG/0.5 ML SYRINGE IVP PRN (07:00)
[2024-05-29] MEDS ORDERED: fentaNYL (PF) 50 MCG/ML 2 ML AMP IVP PRN (07:00)
[2024-05-29] MEDS: AMPICILLIN 1,000 MG in SODIUM CHLORIDE 0.9% 50 ML IVPB PRN (07:30)
[2024-05-29] MEDS ORDERED: fentaNYL (PF) 50 MCG/ML 2 ML AMP ONE (07:30)
[2024-05-29] MEDS ORDERED: LIDOCAINE 1% INJ 10MG/ML (20 ML MDV) ONE (07:30)
[2024-05-29] MEDS ORDERED: PHENYLEPHRINE 10 MG/ML VIAL ONE (07:30)
[2024-05-29] MEDS ORDERED: NEOSTIGMINE 1 MG/ML 10 ML VIAL ONE (07:30)
[2024-05-29] MEDS ORDERED: PROPOFOL 10 MG/ML 20 ML VIAL IV ONE (07:30)
[2024-05-29] MEDS ORDERED: ROCURONIUM 10 MG/ML (5 ML VIAL) IV ONE (07:30)
[2024-05-29] MEDS ORDERED: SUCCINYLCHOLINE CHLORIDE 200 MG/10 ML VIAL IV ONE (07:30)
[2024-05-29] MEDS ORDERED: GLYCOPYRROLATE 0.2 MG/ML 2 ML VIAL ONE (07:30)
[2024-05-29] MEDS ORDERED: ePHEDrine 50 MG/ML 1 ML VIAL ONE (07:30)
[2024-05-29] MEDS: SODIUM CHLORIDE 0.9% 100 ML with GENTAMICIN 80 MG IV ONE (07:56)
[2024-05-29] MEDS: IOPAMIDOL-370 100ML BTL MISCELLANE ONE (08:25)
[2024-05-29] MEDS ORDERED: MAG HYDROX/AL HYDROX/SIMETH 30 ML CUP PO PRN (09:13)
[2024-05-29] MEDS ORDERED: ONDANSETRON 4 MG/2 ML VIAL IVP PRN (09:13)
[2024-05-29] MEDS ORDERED: ACETAMINOPHEN TAB 325 MG TAB PO PRN (09:13)
[2024-05-29] MEDS ORDERED: MORPHINE SULFATE 2 MG/ML SYRINGE IVP PRN (09:16)
--- NOTE | 2024-05-29 09:21 | P.OP ---
Date of Procedure: 05/29/24 Preoperative Diagnosis: renal calculi, large, greater than 2 cm Postoperative Diagnosis: same Procedure(s) Performed: cystoscopy, removal double-J catheter right, placement of occluding balloon catheter right, percutaneous nephrostomy (dr Arias)percutaneous nephrostolithotomy with ultrasound (large, greater than 2 cm)placement of 10 J nephrostomy Anesthesia: ANDRE Surgeon: Bernardo Arias Estimated Blood Loss (ml): 50 Pathology: other (stone) Condition: stable Disposition: PACU Indications for Procedure: patient has a painful almost 2 cm right renal pelvic stone plus several other 8 mm stones in the right kidney. He comes for percutaneous nephrostolithotomy Description of Procedure: patient brought to the operating suite. He is given a general anesthetic on the transport gurney. He's placed in a frog position with a sterile prep and drape. Cystoscopy with a Foroblique lens and 21-Armenian sheath identifies a normal urethra. 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 The bladder is inspected in the right double-J catheters identified and pulled out of the bladder. I then reintroduced the cystoscope and passed a 5-Armenian occluding balloon catheter up into the right renal pelvis. It is secured to a 16-Armenian Cline Patient is placed in a prone position. Percutaneous nephrostomy access is completed to a right upper pole calyx and will be dictated separately. I introduced the nephrostomy tract sheath, 30-Armenian. Through the sheath I passed the rigid nephroscope and identify the large renal pelvic stone. With ultrasound the stone was broken into several pieces the largest of which are grasped and removed with the grasping forceps. I then pass the flexible nephroscope down the ureter and remove some fragments with stone basket. I then move into a lower pole calyx and identify an 8 mm stone which is grasped and removed with stone basket. I move into an upper pole calyx and again identifying a larger stone approximately 8 mm it is grasped and removed. Several other less than 5 mm stones or grasp and removed. Once he was clear I then introduced a 10 J nephrostomy tube over the wire in the renal pelvis confirmed with contrast injection. It is secured to the skin. The patient is awake and returned recovery in good condition. Blood loss is less than 50 mL.
--- NOTE | 2024-05-29 09:25 | P.PCN ---
Date of Procedure: 05/29/24 Preoperative Diagnosis: right renal stones, large greater than 2 cm Postoperative Diagnosis: same Procedure(s) Performed: right percutaneous renalaccess Anesthesia: ANDRE Surgeon: Bernardo Arias Indications for Procedure: the patient has a large right renal stones and comes for right percutaneous nephrostolithotomy. I will perform percutaneous access. Description of Procedure: the patient has been previously anesthetized. He has an gluteal balloon catheter on the right renal pelvis. He's in a prone position with care to airways and extremities. I injected air through the occluding balloon catheter to outline the collecting system. A posterior calyx in the right upper pole of a bifid collecting system was identified and will be intubated. I first passed the Chiba needle, 21-gauge into the upper pole calyx of. Through the Chiba needle pass a cope mandril wire through the upper pole calyx down the ureter. I removed the Chiba needle and over the wires passed a 6-Paraguayan dilating catheter. I removed the inner catheter and the cope mandril wire and passed a 0.35 Super Stiff wire down the ureter. I removed the 6-Paraguayan dilating catheter and pass an 8 and 10-Paraguayan dilating catheter. The 8-Paraguayan was removed and through the 10-Paraguayan pass a safety wire down the ureter. I then removed the 10-Paraguayan catheter and over the working wire passed the nephrostomy tract dilating balloon and dilated the track into the right upper pole calyx to 30-Paraguayan over which I passed the nephrostomy tract sheath.
--- NOTE | 2024-05-29 09:57 | FL ---
EXAMINATION TYPE: FL Perc Nephrostomy New Access DATE OF EXAM: 05/29/2024 9:35 AM COMPARISON: Pre Operative Images if available both CT/MRI or plain film CLINICAL INDICATION: Male, 88 years old with history of Right kidney stone; TECHNIQUE: FL Perc Nephrostomy New Access, multiple fluoroscopic images provided for procedure. Total fluoroscopy time: 63.1 seconds Total submitted images to PACS: 6 DAP: [id number] mGym2 Gycm2 uGym2 cGycm2 or equivalent. FINDINGS: Fluoroscopic images taken for renal stone. Renal stone identified projecting over the renal sinus. No evidence of pneumoperitoneum. No evidence for extravasation of contrast. Multilevel degeneration vilma nges of the spine. IMPRESSION: 1. No evidence for intraoperative complication. 2. Please see the operative/procedural note for further details. [facility], , 05/29/2024 9:55 AM
[2024-05-29] MEDS: KETOROLAC 15 MG/ML 1 ML VIAL IVP ONE (10:06)
[2024-05-29] MEDS: DEXTROSE 5%-0.45% NACL 1,000 ML IV SCH (13:48)
[2024-05-29] MEDS: DORZOLAMIDE HCL 2% DROPS 10 ML BTL RIGHT EYE SCH (14:36)
[2024-05-29] MEDS: BRIMONIDINE TARTRATE 0.2% DROPS 5 ML BTL RIGHT EYE SCH (14:36)
[2024-05-29] MEDS: lisinopriL 20 MG TAB PO SCH (17:31)
[2024-05-29] MEDS: LATANOPROST 0.005% OPHTH DROPS 2.5 ML BTL BOTH EYES SCH (21:56)
[2024-05-29] MEDS: TAMSULOSIN 0.4 MG CAP.ER.24H PO SCH (21:56)
[2024-05-30] MEDS: KETOROLAC 15 MG/ML 1 ML VIAL IVP PRN (03:45)
[2024-05-30] MEDS: PANTOPRAZOLE 40 MG TABLET PO SCH (08:54)
[2024-05-30] MEDS: atenoloL 25 MG TAB PO SCH (08:54)
[2024-05-30] MEDS: prednisoLONE ACETATE 1% OPHTH DROPS 5 ML BTL RIGHT EYE SCH (08:55)
--- NOTE | 2024-05-30 18:26 | P.PN ---
Subjective Progress Note Date: 05/30/24 Status post right PCNL, doing well he is having hematuria per catheter and nephrostomy tube. Denies any pain. Objective - Vital Signs Vital signs: Vital Signs Temp 98.1 F 05/30/24 18:04 Pulse 89 05/30/24 18:04 Resp 18 05/30/24 18:04 BP 125/83 05/30/24 18:04 Pulse Ox 98 05/30/24 18:04 FiO2 Intake & Output 05/29/24 05/30/24 05/30/24 18:59 06:59 18:59 Intake Total 1252 480 Output Total 175 750 690 Balance 5417 -270 -474 Weight 69.5 kg Intake: IV 1252 Oral 480 Output: Drainage 40 Right Back 40 Urine 125 750 650 Estimated Blood Loss 50 Other: Voiding Method Indwelling Catheter Indwelling Catheter - Constitutional General appearance: Present: no acute distress - Gastrointestinal General gastrointestinal: Present: soft. Absent: distended, tenderness - Genitourinary Genitourinary Comment(s): Right nephrostomy and Cline catheter with hematuric urine, no clots appreciated Assessment and Plan Assessment: 88-year-old status post right PCNL, is having hematuria per nephrostomy tube and catheter, which is anticipated given his recent surgery. Given patient age we will monitor for another 24 hours
[2024-06-01 08:13] VITALS: BP 152/98; PULSE 98; RESP 16; TEMP 97.4
--- NOTE | 2024-06-01 08:47 | P.DS ---
Providers Date of admission: 05/30/24 12:17 Attending physician: Bernardo Arias Primary care physician: Michael [facility] Course: This is an 88-year-old male with history of right-sided renal stone, underwent a right-sided PCNL by Dr. Street on May 29. Patient was admitted to the hospital postoperatively. Cline catheter was removed on postop day #2, patient had some difficulty voiding which improved on postop day #3. He was discharged home on postop day #3. At time of discharge patient was tolerating a diet, ambulating, pain was controlled. He was discharged home with the nephrostomy tube Plan - Discharge Summary Discharge Rx Participant: No New Discharge Prescriptions: New Cephalexin [Keflex] 500 mg PO Q8HR #15 cap Ketorolac [Toradol] 10 mg PO Q6HR PRN #15 tab PRN Reason: Pain No Action Latanoprost/Pf [Latanoprost 0.005% Eye Drop] 1 drop BOTH EYES HS Brinzolamide/Brimonidine Tart [Simbrinza 1%-0.2% Eye Drops] 1 drop RIGHT EYE 1200,1800 lisinopriL 40 mg PO 1800 atenoloL [Tenormin] 25 mg PO QAM Omeprazole 40 mg PO QAM Apixaban [Eliquis] 2.5 mg PO BID Tamsulosin HCl [Flomax] 0.4 mg PO BID Loteprednol Etabonate 1 drop RIGHT EYE QAM Discharge Medication List Brinzolamide/Brimonidine Tart [Simbrinza 1%-0.2% Eye Drops] 1 drop RIGHT EYE 1200,1800 05/24/18 [History] Latanoprost/Pf [Latanoprost 0.005% Eye Drop] 1 drop BOTH EYES HS 05/24/18 [History] Omeprazole 40 mg PO QAM 05/24/18 [History] atenoloL [Tenormin] 25 mg PO QAM 05/24/18 [History] lisinopriL 40 mg PO 1800 05/24/18 [History] Apixaban [Eliquis] 2.5 mg PO BID 01/17/22 [History] Tamsulosin HCl [Flomax] 0.4 mg PO BID 01/17/22 [History] Loteprednol Etabonate 1 drop RIGHT EYE QAM 04/23/24 [History] Cephalexin [Keflex] 500 mg PO Q8HR #15 cap 05/31/24 [Rx] Ketorolac [Toradol] 10 mg PO Q6HR PRN #15 tab 05/31/24 [Rx] Follow up Appointment(s)/Referral(s): Jose Ramon Servin [NON-STAFF] - As Needed Michael Us DO [Primary Care Provider] - 1 Week Bernardo Arias MD [STAFF PHYSICIAN] - 1 Week Patient Instructions/Handouts: Percutaneous Nephrolithotomy (DC), Nephrostomy Tube Care (DC) Activity/Diet/Wound Care/Special Instructions: Increase your fluid intake It is normal to have blood in the urine Dressing around the nephrostomy tube can be changed as needed Hold your Eliquis until your follow-up appointment
== END 2024-06-01 13:19 | disposition home health service (06) | DRG 661 ==
LOC: OR 05:47 → 4SSUR 09:03 → OR 05-30 12:17
PROVIDERS: ADMIT Urology; ATTEND Urology
PROC: 0TP98DZ Removal of Intraluminal Device from Ureter, Via Natural or Artificial Opening Endoscopic (ICD-10-PCS; 2024-05-29)
PROC: 0TC33ZZ Extirpation of Matter from Right Kidney Pelvis, Percutaneous Approach (ICD-10-PCS; principal; 2024-05-29 07:30)
PROC: 0T768DZ Dilation of Right Ureter with Intraluminal Device, Via Natural or Artificial Opening Endoscopic (ICD-10-PCS; 2024-05-29 07:30)
DX: N20.0 Calculus of kidney (principal); I10 Essential (primary) hypertension; H91.90 Unspecified hearing loss, unspecified ear; N40.0 Benign prostatic hyperplasia without lower urinary tract symptoms; Z79.01 Long term (current) use of anticoagulants; Z79.899 Other long term (current) drug therapy; Z87.442 Personal history of urinary calculi
CPT/HCPCS: 50432; 74018; 82365

== ENCOUNTER → 2024-08-08 | Outpatient (CLI) | payer MEDICARE, BC ==
--- NOTE | 2024-08-08 13:44 | XR ---
EXAMINATION TYPE: XR hand complete 3 views LT DATE OF EXAM: 08/08/2024 10:51 AM COMPARISON: Wrist 10/03/2022 CLINICAL INDICATION: Male, 88 years old with history of [id number] LT HAND PAIN AND SWELLING, , FINDINGS: There is severe degenerative change of the first CMC joint. Moderate at the first, second, and third MCP joints. Moderate to severe at the second and third DIP joints. Diffuse osteopenia. There is end-s tage [id number] degenerative change at the radioscaphoid joint with bony remodeling of the scaphoid fossa of the distal radius. No marginal erosions are identified. No acute fracture. Proximal migrati on of the capitate. IMPRESSION: 1. 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 2. Moderate osteoarthritic change first-third MCP joints and moderate to severe at the second and thi rd DIP joints. [facility], Workstation: [facility], 08/08/2024 1:42 PM
== END | disposition home or self-care (01) ==
LOC: RADXRYALE 10:07
PROVIDERS: ATTEND Physician Assistant
DX: M19.042 Primary osteoarthritis, left hand (principal); R22.32 Localized swelling, mass and lump, left upper limb

== ENCOUNTER → 2024-10-01 | Outpatient (CLI) | payer MEDICARE, BC ==
--- NOTE | 2024-10-01 09:58 | XR ---
EXAMINATION TYPE: XR chest 2V DATE OF EXAM: 10/01/2024 9:50 AM COMPARISON: Chest radiographs from 04/14/2023 CLINICAL INDICATION: Male, 88 years old with history of [id number],R609 SOB,EDEMA; [facility] TECHNIQUE: XR chest 2V Frontal and lateral views of the chest. FINDINGS: Lungs/Pleura: There is flattening of the diaphragm with increased lucency of the lungs. No evidence o f pneumothorax, pleural effusion or focal consolidation. Pulmonary vascularity: Unremarkable. Heart/mediastinum: Cardiomediastinal silhouette is unremarkable. Musculoskeletal: No acute osseous pathology. IMPRESSION: 1. No acute cardiopulmonary disease process. 2. COPD changes. [facility], , 10/01/2024 9:56 AM
== END | disposition home or self-care (01) ==
LOC: RADXRYALE 09:28
PROVIDERS: ATTEND Family Medicine
DX: J44.9 Chronic obstructive pulmonary disease, unspecified (principal); R60.0 Localized edema
CPT/HCPCS: 71046

== ENCOUNTER → 2024-10-04 | Outpatient (CLI) | payer MEDICARE, BC ==
--- NOTE | 2024-10-04 11:47 | XR ---
EXAMINATION TYPE: XR chest 2V DATE OF EXAM: 10/04/2024 11:35 AM COMPARISON: Chest x-ray 3 days ago CLINICAL INDICATION: Male, 88 years old with history of R0602 SOB, TECHNIQUE: Frontal and lateral views of the chest are obtained. FINDINGS: There is no focal air space opacity, pleural effusion, or pneumothorax seen. Cardiomegaly is redemonstrated. Surgical change to the right shoulder is partially imaged. IMPRESSION: Cardiomegaly without acute pulmonary process. [facility], , 10/04/2024 11:45 AM
== END | disposition home or self-care (01) ==
LOC: RADXRYALE 11:25
PROVIDERS: ATTEND Family Medicine
DX: R06.02 Shortness of breath (principal); I51.7 Cardiomegaly
CPT/HCPCS: 71046